=== PATIENT | female | born 1940 | race Caucasian/White ===

== ENCOUNTER 2016-06-23 13:22 | Emergency (ER) | payer MEDICARE, BC ==
[2016-06-23 14:26] LABS: BASO % 1.7 % (0-6); EOS % 3.4 % (0-6); GRAN % 53.8 % (47-80); HEMATOCRIT 37.4 % (35.0-47.0); HEMOGLOBIN 12.1 gm/dl (11.6-16.0); LYMPH % 31.4 % (16-45); MEAN CELL VOLUME 98.7 fl (81-97); MEAN CORPUSCULAR HEMOGLOBIN 31.9 pg (27-33); MEAN CORPUSCULAR HGB CONC 32.4 g/dl (32-36); MEAN PLATELET VOLUME 10.8 fl (7.4-10.4); MONO % 9.7 % (0-9); PLATELET COUNT 206 K/uL (130-400); RED BLOOD COUNT 3.79 M/uL (3.80-5.40); RED CELL DISTRIBUTION WIDTH 14.7 % (11.5-14.5); WHITE BLOOD COUNT W/O DIFF 4.1 K/uL (4.2-12.2)
[2016-06-23 14:51] LABS: ALB/GLOB RATIO 0.9 (1.1-1.8); ALBUMIN 3.6 gm/dL (3.5-5.0); ALKALINE PHOSPHATASE 199 U/L (38-126); ALT/SGPT 32 U/L (9-52); ANION GAP 15.7 (7-16); AST/SGOT 61 U/L (14-36); BILIRUBIN,TOTAL 3.91 mg/dL (0.2-1.3); BLOOD UREA NITROGEN 10 mg/dL (7-17); CARBON DIOXIDE 25.3 mmol/L (22-30); CREATININE 0.8 mg/dL (0.52-1.04); EST GLOMERULAR FILTRATION RATE > 60 ml/min; GLUCOSE,RANDOM 89 mg/dL (70-110); TOTAL PROTEIN 7.5 gm/dL (6.3-8.2)
[2016-06-23 15:01] LABS: TROPONIN I 0.014 ng/mL (0.00-0.034)
--- NOTE | 2016-06-23 16:09 | Emergency Department Record ---
History of Present Illness - General Chief Complaint: Shortness of breath Stated Complaint: CP/SHORTNESS OF BREATH Time Seen by Provider: 06/23/16 13:43 Source: Patient Mode of Arrival: Wheelchair Limitations: No limitations - History of Present Illness Initial Comments: pt was sent over from dr galo because she was in afib. by the time she got here she no longer was in it. MD Complaint: Cough, Shortness of breath Onset/Timin -: Week(s) Severity: Severe Consistency: Constant Improves With: Nothing Worsens With: Nothing Associated Symptoms: Cough, Nausea/vomiting Treatments Prior to Arrival: Diuretics - Related Data Home Oxygen Therapy: No Home Medications Medication Instructions Recorded Confirmed Last Taken Furosemide [Lasix] 80 mg PO DAILY 11/16/13 06/23/16 06/22/16 Budesonide/Formoterol Fumarate 10.2 gm IH BID 06/23/16 06/23/16 06/23/16 [Symbicort 160-4.5 Mcg Inhaler] Losartan Potassium [Cozaar] 25 mg PO DAILY 06/23/16 06/23/16 06/22/16 Previous Rx's Medication Instructions Recorded Potassium Chloride [Klor-Con] 10 meq PO DAILY #30 tablet.sa 06/30/15 Allergies Allergy/AdvReac Type Severity Reaction Status Date / Time No Known Drug Allergies Allergy Verified 06/23/16 13:32 Travel Screening - Travel/Exposure Within Last 30 Days Have you traveled within the last 30 days?: No Review of Systems Reviewed: No additional complaints except as noted below Constitutional: Reports: As per HPI. Denies: Chills, Fever, Malaise, Night sweats, Weakness, Weight change Eyes: Reports: As per HPI. Denies: Eye discharge, Eye pain, Photophobia, Vision change ENT: Reports: As per HPI. Denies: Congestion, Dental pain, Ear pain, Epistaxis , Hearing loss, Throat pain Respiratory: Reports: As per HPI. Denies: Cough, Dyspnea, Hemoptysis, Stridor, Wheezes Cardiovascular: Reports: As per HPI. Denies: Arrhythmia, Chest pain, Dyspnea on exertion, Edema, Murmurs, Orthopnea, Palpitations, Paroxysmal nocturnal dyspnea, Rheumatic Fever, Syncope Endocrine: Reports: As per HPI. Denies: Fatigue, Heat or cold intolerance, Polydipsia, Polyuria Gastrointestinal: Reports: As per HPI. Denies: Abdominal pain, Constipation, Diarrhea, Hematemesis, Hematochezia, Melena, Nausea, Vomiting Genitourinary: Reports: As per HPI. Denies: Abnormal menses, Discharge, Dyspareunia, Dysuria, Frequency, Hematuria, Incontinence, Retention, Urgency Musculoskeletal: Reports: As per HPI. Denies: Arthralgia, Back pain, Gout, Joint swelling, Myalgia, Neck pain Skin: Reports: As per HPI. Denies: Bruising, Change in color, Change in hair/ nails, Lesions, Pruritus, Rash Neurological: Reports: As per HPI. Denies: Abnormal gait, Confusion, Headache, Numbness, Paresthesias, Seizure, Tingling, Tremors, Vertigo, Weakness Psychiatric: Reports: As per HPI. Denies: Anxiety, Auditory hallucinations, Depression, Homicidal thoughts, Suicidal thoughts, Visual hallucinations Hematological/Lymphatic: Reports: As per HPI. Denies: Anemia, Blood Clots, Easy bleeding, Easy bruising, Swollen glands Past Medical History - SOCIAL HISTORY Smoking Status: Never smoker Alcohol Use: None Drug Use: None - RESPIRATORY Hx Respiratory Disorders: Yes Hx Pneumonia: Yes - CARDIOVASCULAR Hx Cardio Disorders: Yes Hx Irregular Heartbeat: Yes (afib) Hx Pacemaker/Defib: Yes (bradycardia) - NEURO Hx Neuro Disorders: No - GI Hx GI Disorders: No Hx Liver Disease: Yes (cirrhosis- unrelated to etoh) Comment:: hx esophageal varicies, numerous scopes with banding - Hx Genitourinary Disorders: No - ENDOCRINE Hx Endocrine Disorders: No Hx Diabetes: No Hx Thyroid Disease: No - MUSCULOSKELETAL Hx Musculoskeletal Disorders: Yes - PSYCH Hx Psych Problems: No - HEMATOLOGY/ONCOLOGY Hx Hematology/Oncology Disorders: Yes Hx Cancer: Yes (cervical) Family Medical History Any Significant Family History?: Yes Hx Cancer: Brother/Sister, Grandparents Hx Heart Disease: Grandparents Physical Exam - General General Appearance: Alert, Oriented x3, Cooperative, Mild distress - Head Head exam: Normal inspection - Eye Eye exam: Normal appearance, PERRL, EOMI Pupils: Normal accommodation - ENT ENT exam: Normal exam, Mucous membranes moist, Normal external ear exam, Normal orophraynx, TM's normal bilaterally Ear exam: Normal external inspection. negative: External canal tenderness Nasal Exam: Normal inspection. negative: Discharge, Sinus tenderness Mouth exam: Normal external inspection, Tongue normal Teeth exam: Normal inspection. negative: Dental caries Throat exam: Normal inspection. negative: Tonsillar erythema, Tonsillar exudate - Neck Neck exam: Normal inspection, Full ROM. negative: Tenderness - Respiratory Respiratory exam: Normal lung sounds bilaterally. negative: Respiratory distress - Cardiovascular Cardiovascular Exam: Regular rate, Normal rhythm, Normal heart sounds - GI/Abdominal GI/Abdominal exam: Soft, Normal bowel sounds, Other (ascites). negative: Tenderness - Rectal Rectal exam: Deferred - exam: Deferred - Extremities Extremities exam: Full ROM, Normal capillary refill, Pedal edema. negative: Tenderness - Back Back exam: Reports: Normal inspection, Full ROM. Denies: Muscle spasm, Rash noted, Tenderness - Neurological Neurological exam: Alert, Normal gait, Oriented X3, Reflexes normal - Psychiatric Psychiatric exam: Normal affect, Normal mood - Skin Skin exam: Dry, Intact, Normal color, Warm Course Vital Signs 06/23/16 06/23/16 06/23/16 13:24 14:23 15:04 Temperature 97.8 F Pulse Rate 93 H Pulse Rate [ 109 H 84 Home Health Caregiver ] Respiratory 24 20 24 Rate Blood Pressure 145/69 Blood Pressure 115/69 140/55 [Left Arm] Pulse Ox 98 97 97 06/23/16 16:02 Temperature 97.9 F Pulse Rate Pulse Rate [ 88 Home Health Caregiver ] Respiratory 24 Rate Blood Pressure Blood Pressure 119/64 [Left Arm] Pulse Ox 97 - Reevaluation(s) Reevaluation #1: 06/23/16 16:10 pt feels fine. no further afib Reevaluation #2: 06/23/16 16:[address] hyde Medical Decision Making - Lab Data Result diagrams: 06/23/16 13:30 06/23/16 13:30 Lab Results 06/23/16 06/23/16 Range/Units 13:30 13:30 WBC 4.1 L (4.2-12.2) K/uL RBC 3.79 L (3.80-5.40) M/uL Hgb 12.1 (11.6-16.0) gm/dl Hct 37.4 (35.0-47.0) % MCV 98.7 H (81-97) fl MCH 31.9 (27-33) pg MCHC 32.4 (32-36) g/dl RDW 14.7 H (11.5-14.5) % Plt Count 206 (130-400) K/uL MPV 10.8 H (7.4-10.4) fl Gran % 53.8 (47-80) % Lymphocytes % 31.4 (16-45) % Monocytes % 9.7 H (0-9) % Eosinophils % 3.4 (0-6) % Basophils % 1.7 (0-6) % Sodium 141 (136-145) mmol/L Potassium 3.7 (3.5-5.1) mmol/L Chloride 100 (98-107) mmol/L Carbon Dioxide 25.3 (22-30) mmol/L Anion Gap 15.7 (7-16) BUN 10 (7-17) mg/dL Creatinine 0.8 (0.52-1.04) mg/dL Estimated GFR > 60 ml/min Random Glucose 89 (70-110) mg/dL Calcium 8.9 (8.5-10.1) mg/dL Total Bilirubin 3.91 H (0.2-1.3) mg/dL AST 61 H (14-36) U/L ALT 32 (9-52) U/L Alkaline Phosphatase 199 H (38-126) U/L Troponin I 0.014 (0.00-0.034) ng/mL NT-Pro-B Natriuret Pep 408.00 (<450) pg/mL Total Protein 7.5 (6.3-8.2) gm/dL Albumin 3.6 (3.5-5.0) gm/dL Globulin 3.9 (1.4-4.8) gm/dL Albumin/Globulin Ratio 0.9 L (1.1-1.8) Disposition Disposition: Discharge Clinical Impression: Shortness of Breath Hepatic cirrhosis Qualifiers: Hepatic cirrhosis type: other cirrhosis Qualified Code(s): K74.69 - Other cirrhosis of liver Disposition: Home, Self-Care Condition: (1) Good Instructions: Dyspnea (ED) Additional Instructions: follow up with dr worthington tomorrow Forms: Patient Portal Access
== END 2016-06-23 16:38 | disposition home or self-care (01) ==
LOC: ER 13:22
DX: R06.02 Shortness of breath (principal); K74.69 Other cirrhosis of liver; R11.2 Nausea with vomiting, unspecified; R05 Cough; I48.91 Unspecified atrial fibrillation
CPT/HCPCS: 80053; 83880; 84484; 85025; 93005; 93010; 99284

== ENCOUNTER 2017-06-18 04:09 | Emergency (ER) | payer MEDICARE, BC ==
[2017-06-18] MEDS ORDERED: MORPHINE SULFATE 5 MG/ML PFS IVP ONE ×2 (04:18→06:57)
--- NOTE | 2017-06-18 04:22 | Emergency Department Record ---
History of Present Illness - General Chief Complaint: Fall Injury Stated Complaint: FALL, R ARM PAIN Time Seen by Provider: 06/18/17 04:14 Source: Patient, Family Mode of Arrival: Wheelchair Limitations: No limitations - History of Present Illness Initial Comments: 77 yo presents with weakness and right shoulder pain. The patient has cirrhosis with chronic liver disease due to Alpha-1 Antitrypsin Deficiency. She has weekly paracentesis for ascites. She is very week generally due to her chronic illness. She is on home oxygen as well. At 11pm she was walking down the hallway and felt weak. She fell landing on her right shoulder and elbow. Her significant other had family help get her up and into bed. At three AM she was still unable to sleep due to pain. No head injury. No LOC. No other injuries from the fall. Her PCP is Dr Alvarez. Complaint: Fall -: Hour(s) (5) Fall From: Standing When Fall Occurred: 4-6 hours [employer] Fall Witnessed: Yes, by family Place Fall Occurred: Home Loss of Consciousness: None Prolonged Down Time?: No Symptoms Prior to Fall: Other (Weakness) Location - Extremities: Right: Shoulder, Elbow Severity: Moderate Quality: Aching Context: Recent illness Associated Symptoms: Denies - [place] Coma Scale Eye Response: (4) Open spontaneously Motor Response: (6) Obeys commands Verbal Response: (5) Oriented [place] Total: 15 - Related Data Previous Rx's Medication Instructions Recorded Potassium Chloride [Klor-Con] 10 meq PO DAILY #30 tablet.sa 06/30/15 Allergies Allergy/AdvReac Type Severity Reaction Status Date / Time No Known Drug Allergies Allergy Verified 06/23/16 13:32 Review of Systems Constitutional: Reports: Malaise, Weakness. Denies: Chills, Fever Eyes: Denies: Eye discharge, Eye pain, Photophobia, Vision change ENT: Denies: Congestion, Dental pain, Throat pain Respiratory: Denies: Cough, Dyspnea, Hemoptysis, Stridor, Wheezes Cardiovascular: Denies: Chest pain, Palpitations, Syncope Endocrine: Reports: Fatigue. Denies: Polydipsia, Polyuria Gastrointestinal: Denies: Abdominal pain, Diarrhea, Nausea, Vomiting Genitourinary: Denies: Dysuria, Hematuria, Urgency Musculoskeletal: Reports: As per HPI, Arthralgia, Myalgia. Denies: Back pain, Joint swelling, Neck pain Skin: Reports: Bruising. Denies: Change in color Neurological: Reports: Weakness (generalized). Denies: Confusion, Headache, Numbness Psychiatric: Denies: Anxiety Hematological/Lymphatic: Denies: Blood Clots, Easy bleeding, Easy bruising, Swollen glands Past Medical History - SOCIAL HISTORY Smoking Status: Never smoker Drug Use: None - RESPIRATORY Hx Respiratory Disorders: Yes Hx Pneumonia: Yes - CARDIOVASCULAR Hx Cardio Disorders: Yes Hx Irregular Heartbeat: Yes (afib) Hx Pacemaker/Defib: Yes (bradycardia) - NEURO Hx Neuro Disorders: No - GI Hx GI Disorders: No Hx Liver Disease: Yes (cirrhosis- unrelated to etoh) Comment:: hx esophageal varicies, numerous scopes with banding - Hx Genitourinary Disorders: No - ENDOCRINE Hx Endocrine Disorders: No Hx Diabetes: No Hx Thyroid Disease: No - MUSCULOSKELETAL Hx Musculoskeletal Disorders: Yes - PSYCH Hx Psych Problems: No - HEMATOLOGY/ONCOLOGY Hx Hematology/Oncology Disorders: Yes Hx Cancer: Yes (cervical) Family Medical History Hx Cancer: Brother/Sister, Grandparents Hx Heart Disease: Grandparents Physical Exam - General General Appearance: Alert, Oriented x3, Cooperative, No acute distress, Other ( Appears chronically ill and frail) Limitations: No limitations - Head Head exam: Atraumatic, Normocephalic, Normal inspection Head exam detail: negative: Abrasion, Contusion, Hematoma, Laceration - Eye Eye exam: Normal appearance, PERRL. negative: Conjunctival injection, Periorbital swelling, Scleral icterus - ENT ENT exam: Normal exam, Mucous membranes moist, Normal orophraynx Ear exam: Normal external inspection Nasal Exam: Normal inspection Mouth exam: Normal external inspection Teeth exam: Normal inspection Throat exam: Normal inspection - Neck Neck exam: Normal inspection, Full ROM. negative: Tenderness - Respiratory Respiratory exam: Normal lung sounds bilaterally. negative: Accessory muscle use, Chest wall tenderness, Decreased breath sounds, Prolonged expiratory, Respiratory distress, Rhonchi, Stridor, Wheezes - Cardiovascular Cardiovascular Exam: Normal rhythm, Tachycardia Peripheral Pulses: 2+: Radial (R), Radial (L) - GI/Abdominal GI/Abdominal exam: Soft, Distended (softly, but non tender). negative: Guarding , Rebound, Tenderness - Rectal Rectal exam: Deferred - exam: Deferred - Extremities Extremities exam: Joint swelling, Normal capillary refill, Tenderness. negative : Calf tenderness, Full ROM Image of Full Body: 1 - tender anterior shoulder, pain with ROM, mild swelling and bruising - Back Back exam: Denies: CVA tenderness (R), CVA tenderness (L), Muscle spasm, Rash noted, Tenderness - Neurological Neurological exam: Alert, Oriented X3. negative: Motor sensory deficit - Psychiatric Psychiatric exam: Normal affect, Normal mood - Skin Skin exam: Dry, Intact, Normal color, Warm Course - Reevaluation(s) Reevaluation #1: The CBC was reviewed She has chronic anemia. Hgb is 10.0 The BMP was reviewed. She is hyponatremic at 127, K is 5.2, HCO3 is 12, BUN is 55, CR is 2.6 with AG 21 INR is 1.13 06/18/17 05:02 The XR was reviewed She has a proximal humerus fracture with mild displacement. No dislocation. 06/18/17 05:08 06/18/17 05:36 EKG Paced rhtyhm, rate 100, left axis, New pacer since prior EKG 06/23/2016 Given her weakness, hyponatremia, renal insufficiency, humerus fracture to weak and painful to care for self I recommended admission. There will not be orthopedics at [facility] for 2 weeks. The patient chooses [facility] for transfer as she gets most of her care through [facility]. I SW Dr Luo of [facility] She will accept the case for transfer, admission, ortho consult 06/18/17 05:40 ammonia level is 51 06/18/17 06:25 A bed was assigned at [facility]. Medical Decision Making - Lab Data Result diagrams: 06/18/17 04:28 06/18/17 04:28 Disposition Disposition: Transfer Clinical Impression: Hyponatremia, Renal insufficiency, Weakness generalized Humerus fracture Qualifiers: Encounter type: initial encounter Humerus Location: proximal Fracture type: closed Fracture alignment: displaced Laterality: right Disposition: Acute Care Hospital Transfer Transfer To: [facility] Reason For Transfer: Humerus Fx, CRF, Ortho Accepting Physician: Valerio Time Discussed w/Accepting Physician: 05:36 Condition: (2) Stable Forms: Patient Portal Access Time of Disposition: 05:36 Quality - Quality Measures Quality Measures: N/A - Blood Pressure Screening Does Patient Have Any of the Following: No Blood Pressure Classification: Pre-Hypertensive BP Reading Systolic Measurement: 104 Diastolic Measurement: 84 Screening for High Blood Pressure: < Pre-Hypertensive BP, F/U Documented > [ [id number]] Pre-Hypertensive Follow-up Interventions: Referral to alternative/primary care provider.
[2017-06-18 04:41] LABS: HEMATOCRIT 30.3 % (35.0-47.0); MEAN CELL VOLUME 96.8 fl (81-97); MEAN CORPUSCULAR HEMOGLOBIN 31.9 pg (27-33); MEAN PLATELET VOLUME 10.8 fl (7.4-10.4); PLATELET COUNT 182 K/uL (130-400); RED BLOOD COUNT 3.13 M/uL (3.80-5.40); RED CELL DISTRIBUTION WIDTH 13.8 % (11.5-14.5); WHITE BLOOD COUNT W/O DIFF 9.6 K/uL (4.2-12.2)
[2017-06-18 04:46] LABS: INR 1.13; PARTIAL THROMBOPLASTIN TIME 35.7 SECONDS (24.5-39.1); PROTHROMBIN TIME (PATIENT) 12.2 SECONDS (9.5-12.1)
[2017-06-18 04:48] LABS: BILIRUBIN,TOTAL 2.2 mg/dL (0.2-1.0); CREATININE 2.6 mg/dL (0.5-0.9)
[2017-06-18 04:49] LABS: TOTAL PROTEIN 6.7 g/dL (6.6-8.7)
[2017-06-18 04:54] LABS: ALBUMIN 3.8 g/dL (4.0-5.0); BILIRUBIN,DIRECT 0.6 mg/dL (0-0.3)
[2017-06-18] MEDS ORDERED: 0.9 % SODIUM CHLORIDE 1000ML 1,000 ML IV PRN (05:18)
[2017-06-18] MEDS ORDERED: ONDANSETRON HCL IV 4 MG/2 ML VIAL IVP ONE (05:23)
--- NOTE | 2017-06-18 12:58 | RADIOLOGY REPORT ---
DATE: 06/18/2017. EXAM: RIGHT SHOULDER, FOUR VIEWS. COMPARISON: None. HISTORY: Fall. Pain. TECHNIQUE: Four views of the right shoulder were obtained. FINDINGS: Mildly comminuted, impacted humeral head/neck fracture. Fracture may involve the greater tuberosity. There is approximately one cortex with lateral displacement. Bones are osteopenic. IMPRESSION: COMMINUTED, IMPACTED HUMERAL HEAD/NECK FRACTURE. JOB NUMBER: [id number] MTDD
--- NOTE | 2017-06-18 13:01 | RADIOLOGY REPORT ---
DATE: 06/18/2017. EXAM: RIGHT ELBOW, THREE VIEWS. HISTORY: Fall. Pain. TECHNIQUE: Three views of the right elbow were obtained. FINDINGS: The bones are osteopenic. No elbow joint effusion. No clearly acute osseous abnormality. Olecranon enthesophyte at the triceps attachment. Mild soft tissue swelling. IMPRESSION: NO ACUTE OSSEOUS ABNORMALITY OF THE RIGHT ELBOW. JOB NUMBER: [id number] MTDD
== END 2017-06-18 07:48 | disposition short-term general hospital (02) ==
LOC: ER 04:09
DX: S42.354A Nondisplaced comminuted fracture of shaft of humerus, right arm, initial encounter for closed fracture (principal); E87.1 Hypo-osmolality and hyponatremia; R53.1 Weakness; K74.69 Other cirrhosis of liver; E88.01 Alpha-1-antitrypsin deficiency; I48.91 Unspecified atrial fibrillation; D53.9 Nutritional anemia, unspecified; W18.30XA Fall on same level, unspecified, initial encounter; Y92.009 Unspecified place in unspecified non-institutional (private) residence as the place of occurrence of the external cause
CPT/HCPCS: 80048; 80076; 82140; 85027; 85610; 85730; 93005; 93010; 96374; 96375; 96376; 99285; J2405

== ENCOUNTER 2017-06-20 12:30 | Inpatient (IN) | payer BC, MEDICARE ==
[2017-06-21] MEDS ORDERED: ALBUTEROL HFA 8 GM INHALER INH PRN (16:26)
--- NOTE | 2017-06-21 16:32 | Rehab Evaluation ---
Patient Information - Patient Information Diagnosis: right humerus fracture, ascitis d/t cirrhosis, emphysema Ordered Treatment: OT Evaluate and Treat Status: Initial Evaluation Surgery: No Past Med/Gaetano Hx Detail: Detail (Pt, spouse and family members report she has been ill for about a year and has been getting weaker.) Past Medical/Surgical Hx: PAST MEDICAL/SURGICAL HISTORY Past Surgical History hysterectomy appendectomy tonsillectomy PMH - Respiratory Hx Respiratory Disorders Yes Hx Chronic Obstructive Yes Pulmonary Disease (COPD) Hx Pneumonia Yes Comment: Home O2- 2L mostly throughout the night PMH - Cardiovascular Hx Cardiovascular Disorders Yes Hx Irregular Heartbeat Yes: afib Hx Pacemaker/Defibrillator Yes: bradycardia PMH - Neuro Hx Neurological Disorders No PMH - GI Hx Gastrointestinal Disorders Yes Hx Liver Disease Yes: cirrhosis- unrelated to etoh Hx Nausea/Vomiting Yes Comment: hx esophageal varicies, numerous scopes with banding PMH - Hx Genitourinary Disorders Yes Hx Renal Disease Yes PMH - Endocrine Hx Endocrine Disorders No Hx Diabetes No Hx Thyroid Disease No PMH - Musculoskeletal Hx Musculoskeletal Disorders No Comment: fx ribs 2 yrs ago PMH - Psych Hx Psychiatric Problems No PMH - Hematology/Oncology Hx Hematology/Oncology Yes Disorders Hx Cancer Yes: cervical Hx Chemotherapy No Hx Radiation Therapy No Premorbid Status: Detail (Pt lives with spouse in a 1 story house, she stays on the 1st floor. She has 2 steps, no handrails at entrance although there is a surface to grab onto by the steps. She has a tub/shower combination, 1 grab bar and no seat. She usually stands to shower. Spouse and sister complete home mgmt, meal prep and laundry. She has been Ind with showering and dressing although her spouse is nearby in case she needs help. Prior to fall she was ambulating without an assistive device.) Precautions: [place], Fall, Other (Right UE in sling at all times, non weight bearing right UE) Subjective Information - Subjective Information Per Patient, Other (Spouse, sister and friend) Objective Data - Pain Pain Present: Yes (3/10 right shoulder, upper arm and elbow.) - Mental Status Patient Orientation: Oriented x3 - Visual Perception Appears within normal limits for therapeutic activities - ROM Not within normal limits (Right UE not tested due to fracture, Left UE AROM WNL) - Strength/Tone Not within normal limits (Right UE not tested due to fracture, Left UE 4+/5) - Coordination Deficit (Right hand coordination impaired due to immobilization, left UE WNL) - Transfers Independent (Ind with sit to stand from chair) - Balance Balance Sitting: Good Balance Standing: Good - Sensation Intact - Gait Detail (Pt ambulating in room with yuri walker and CG assist/verbal cues for safety) - ADL's/IADL's Detail (Pt able to complete oral hygiene, washing face and combing hair at sink in standing with SBA, using right hand as an assist. Doffed sling with verbal cues, doffed gown with min assist, donned button down shirt with mod assist to door puller right shoulder/upper arm and around back, she was Ind with buttons. Doffed PJ bottoms and slippers Indly with mod difficulty, donned underpants Indly, donned pants with min assist, donned socks with mod assist to start over toes. Donned slip on shoes Indly. Donned sling with mod-max assist.) Therapy Assessment - Therapy Assessment Detail (Pt presents with decreased Ind with self care activities due to immobilization of right UE, decreased endurance/activity tolerance for self cares and functional mobility.) Problem List - Problem List Occupational Therapy Problem List: Detail (1. Decreased Ind with total body dressing. 2. Decreased Ind with showering. 3. Decreased endurance/activity tolerance needed for safe and Ind ADLs.) Goals - Goals Occupational Therapy Goals: 1. Pt will be safe and Ind with total body dressing including sling. 2. Pt will be safe and Ind with showering. 3. Pt will participate in activities to improve overall endurance and tolerance to activity to allow safe and Ind ADLs. Prognosis - Prognosis Good Plan - Plan Occupational Therapy Plan: OT 2-4 days per week to address self cares, functional mobility, endurance and activity tolerance to allow return home with spouse.
[2017-06-21] MEDS: CEPHALEXIN 500 MG CAPSULE PO SCH ×2 (17:38→22:07)
[2017-06-21] MEDS: MIDODRINE 5 MG PO SCH ×4 (17:38→23:14)
--- NOTE | 2017-06-21 20:43 | History & Physical ---
History of Present Illness - Date Date of Service for History & Physical: 06/22/17 - History of Present Illness Admitting Diagnosis: right humerus fracture. Ascitis d/t cirrhosis. Emphysema History of Present Illness: Patient is a 77 yo female admitted to [facility] for generalized weakness. 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 Patient transferred to [facility] from our ER after mechanical fall and right humeral fracture. Incidentally, patient was found to have hyponatremia and acute on chronic renal failure. Patient's sodium is chronically low due to cirrhosis. She has weekly paracentesis (most recently 06/16). Her right humeral fracture is non surgical. Patient reports mid esophageal liquid/solid dysphagia. pertinent negatives: cp, sob, sally, fever, chills, n/v, abd pain, diarrhea, dizziness, lightheadedness. positive: right upper ext pain, bruising, fatigue, weakness. Patient lives in a one story home with her . She does have two stairs into her house w/o a railing. There's a tub/shower combo in her bathroom. Prior to her arrival, patient ambulated without an assisted device. GI: [facility], EGD scheduled in June. Nephrology: Dr. Alvarado Ortho: Dr. Thomas- needs fup in 2 weeks from 06/21 PCP: Dr. Alvarez General - Cognitive Patterns Orientation: Oriented x3, Person, Place, Time, Responds to Name, Recognizes Familiar Faces or Places, Knows Own Daily Schedule - Communication Preferred Language?: Mongolian Level of Education: High School Comprehension Ability: No Impairment Select best description of speech pattern: Clear Speech Ability to express ideas and wants: Understood Understanding verbal content: Understands - Psychosocial Well-Being Usual Living Arrangement: Spouse, Children - Physical Functioning Activity Level: Up with assist x1 ROM Ability: Limited/Compromised Assistive Devices: None Ambulation Ability: Needs Assist Bed Mobility: Needs Assist Transfer Ability: Needs Assist Bathing Ability: Needs Assist Personal Hygiene: Needs Assist Dressing Ability: Needs Assist Eating (Feeding) Ability: Needs Assist Toileting Ability: Needs Assist Administer Own Medication: Needs Assist Care Ability Comment: needs help with cutting food prior to eating. - Continence Bladder Pattern: Normal - Dental Status Unable to examine: No Broken or loosely fitting full or partial dentures: No No natural teeth or tooth fragment(s) (edentulous): No Abnormal mouth tissue (ulcers, masses, oral lesions, etc.): No Obvious or likely cavity or broken natural teeth: No Inflamed or bleeding gums or loose natural teeth: No Mouth/facial pain, discomfort or difficulty chewing: No - Nutrition Screening Poor oral intake > 1 week: Yes Unplanned weight loss in specified time frame: No Nutrition Support via tube feedings or parenteral nutrition: No Pressure Ulcer: No Significantly underweight define as BMI <18.5 kg/m2: No Albumin <2.5mg/dL: No Persistent nausea/vomiting/diarrhea >3 days: Yes Difficulty chewing/swallowing/mouth sores: No Admitting Diagnosis: No Nutrition Risk Score: High Risk Past Medical History - SOCIAL HISTORY Smoking Status: Never smoker Alcohol Use: None - SURGICAL HISTORY Past Surgical History: hysterectomy. appendectomy. tonsillectomy - RESPIRATORY Hx Respiratory Disorders: Yes Hx Pneumonia: Yes - CARDIOVASCULAR Hx Cardio Disorders: Yes Hx Irregular Heartbeat: Yes (afib) Hx Pacemaker/Defib: Yes (bradycardia) - NEURO Hx Neuro Disorders: No - GI Hx GI Disorders: Yes Hx Liver Disease: Yes (cirrhosis- unrelated to etoh) Hx Nausea/Vomiting: Yes Comment:: hx esophageal varicies, numerous scopes with banding - Hx Genitourinary Disorders: Yes Hx Renal Disease: Yes - ENDOCRINE Hx Endocrine Disorders: No Hx Diabetes: No Hx Thyroid Disease: No - MUSCULOSKELETAL Hx Musculoskeletal Disorders: No - PSYCH Hx Psych Problems: No - HEMATOLOGY/ONCOLOGY Hx Hematology/Oncology Disorders: Yes Hx Cancer: Yes (cervical) Family Medical History Any Significant Family History?: Yes Hx Cancer: Brother/Sister, Grandparents Hx Heart Disease: Mother, Grandparents Hx HTN: Mother Hx Resp Disorders: Mother H&P Meds/Allergies - Allergies Allergies: Allergies Allergy/AdvReac Type Severity Reaction Status Date / Time codeine AdvReac NAUSEA Verified 06/21/17 15:25 - Active Medications Active Medications: Current Medications Albuterol Sulfate (Ventolin Hfa) 2 puff INH Q6H PRN PRN Reason: SHORTNESS OF BREATH Cephalexin HCl (Keflex) 500 mg PO TID [facility] Stop: 06/27/17 22:01 Last Admin: 06/21/17 17:38 Dose: 500 mg Docusate Sodium (Colace) 100 mg PO BID [facility] Ondansetron HCl (Zofran Odt) 4 mg SL TID PRN PRN Reason: NAUSEA Patient Own Med: (Midodrine 5 Mg) 1 each PO TID [facility] Last Admin: 06/21/17 17:55 Dose: 1 each Prednisone (Prednisone 10mg) 10 mg PO DAILYWM [facility] Stop: 06/26/17 08:01 Physical Exam - Vital Signs Vital Signs: Vital Signs - Last 24 Hrs Temp Pulse Resp BP Pulse Ox 06/21/17 20:00 97.8 F 78 16 99/51 99 06/21/17 15:25 97.8 F 77 18 122/78 99 - General General Appearance: Alert, Oriented x3, Cooperative, No acute distress - Head Head exam: Atraumatic, Normocephalic - Eye Eye exam: Normal appearance, PERRL - ENT ENT exam: Normal exam, Normal orophraynx Ear exam: Normal external inspection Nasal Exam: Normal inspection Mouth exam: Normal external inspection - Neck Neck exam: Normal inspection - Respiratory Respiratory exam: Prolonged expiratory, Wheezes. negative: Respiratory distress - Cardiovascular Cardiovascular Exam: Regular rate, Other (pacemaker present) - GI/Abdominal GI/Abdominal exam: Soft - Rectal Rectal exam: Deferred - exam: Deferred H&P Results - Labs Result Diagrams: 06/22/17 06:27 06/22/17 06:27 Discharge Potential - Discharge Needs Patient Discharge Plan Description: Return Home Plan - Swing Bed Certification Initial Certification Due: 06/21/17 14 Day Re-Cert Due: 07/05/17 44 Day Re-Cert Due: 08/04/17 74 Day Re-Cert Due: 09/03/17 - Detailed Diagnosis and Plan (1) Weakness generalized Current Visit: No Status: Acute Base Code: R53.1 - WEAKNESS Comment: 06/22 - worsening over the past year, more specifically the last few months. PT/OT to help build physical strength and functioning. (2) Cirrhosis Current Visit: Yes Status: Acute Base Code: K74.60 - UNSPECIFIED CIRRHOSIS OF LIVER Comment: 06/22- cirrhosis 2/2 alpha 1 antitrypsin deficiency. Patient following with [facility]. She has an appt with their office today at 4pm. Will continue weekly paracentesis w/ albumin replacement. (3) Humerus fracture Current Visit: No Status: Acute Qualifiers: Encounter type: initial encounter Humerus Location: proximal Fracture type: closed Fracture alignment: displaced Laterality: right Base Code: S42.309A - UNSP FRACTURE OF SHAFT OF HUMERUS, UNSP ARM, INIT Comment: 06/22- continue right arm sling and adequate pain control. she will follow up with ortho by July 05. (4) Hyponatremia Current Visit: No Status: Acute Base Code: E87.1 - HYPO-OSMOLALITY AND HYPONATREMIA Comment: 06/22- chronically low due to cirrhosis. improved since d/c from [facility]. will follow. (5) Renal insufficiency Current Visit: No Status: Acute Base Code: N28.9 - DISORDER OF KIDNEY AND URETER, UNSPECIFIED Comment: 06/22- per nephrology note, they suspect this is related to hypoperfusion/hypotension w/ liver failure + frequent required paracentesis and chronic hepatorenal syndrome. Will follow. - continue midodrine TID for hypotension. (6) Full code status Current Visit: Yes Status: Acute Base Code: Z78.9 - OTHER SPECIFIED HEALTH STATUS Comment: 06/22- FULL CODE (7) Dysphagia Current Visit: Yes Status: Acute Base Code: R13.10 - DYSPHAGIA, UNSPECIFIED Comment: 06/22- chronic to both liquids and solids. speech eval/treat order. patient has egd scheduled.
[2017-06-21] MEDS: DOCUSATE SODIUM 100 MG CAPSULE PO SCH (22:07)
[2017-06-22] MEDS: BREO (FLUTICASONE/VILANTEROL) 200MCG/25MCG INHALER INH SCH ×2 (05:46→09:59)
[2017-06-22 06:52] LABS: EOS % 1.6 % (0-6); GRAN % 71.4 % (47-80); HEMATOCRIT 25.7 % (35.0-47.0); HEMOGLOBIN 8.5 gm/dl (11.6-16.0); LYMPH % 16.5 % (16-45); MEAN CELL VOLUME 95.2 fl (81-97); MEAN CORPUSCULAR HGB CONC 33.1 g/dl (32-36); MEAN PLATELET VOLUME 10.2 fl (7.4-10.4); MONO % 10.5 % (0-9); PLATELET COUNT 223 K/uL (130-400); RED CELL DISTRIBUTION WIDTH 13.5 % (11.5-14.5); WHITE BLOOD COUNT W/O DIFF 7.3 K/uL (4.2-12.2)
[2017-06-22 07:01] LABS: MEAN CORPUSCULAR HEMOGLOBIN 31.4 pg (27-33)
[2017-06-22 07:13] LABS: ALB/GLOB RATIO 1.1 (1.1-1.8); ALBUMIN 3.2 g/dL (4.0-5.0); BILIRUBIN,TOTAL 1.3 mg/dL (0.2-1.0); CREATININE 3.2 mg/dL (0.5-0.9)
[2017-06-22] MEDS: PREDNISONE 10 MG TAB PO SCH (08:45)
[2017-06-22] MEDS: DOCUSATE SODIUM 100 MG CAPSULE PO SCH ×2 (09:53→22:18)
[2017-06-22] MEDS: CEPHALEXIN 500 MG CAPSULE PO SCH ×3 (09:53→22:18)
[2017-06-22] MEDS: MIDODRINE 5 MG PO SCH ×3 (09:54→22:18)
--- NOTE | 2017-06-22 13:29 | Rehab Evaluation ---
Patient Information - Patient Information Diagnosis: right humerus fracture, ascitis d/t cirrhosis, emphysema Ordered Treatment: PT Evaluate and Treat Status: Initial Evaluation Surgery: No History: Detail (Pt had a fall at home at night while walking to the bathroom from bed. She doesn't know what happened but thinks she may have slipped. She states that her , son and daughter in law all helped her get back into bed, where she proceeded to experience increasing pain in the right upper extremity. She subsequently came to the ED, diagnosed with R humerus fracture, and was transferred to [facility], where she receives paracentesis weekly. She is admitted to sub-acute rehab due to generalized weakness.) Past Med/Gaetano Hx Detail: Detail (Pt, spouse and family members report she has been ill for about a year and has been getting weaker. She states she had a fall from the bathroom vanity about two years ago and fractured ribs, after which she has been declining. Cirrhosis was diagnosed during care following that fall.) Past Medical/Surgical Hx: PAST MEDICAL/SURGICAL HISTORY Past Surgical History hysterectomy appendectomy tonsillectomy PMH - Respiratory Hx Respiratory Disorders Yes Hx Chronic Obstructive Yes Pulmonary Disease (COPD) Hx Pneumonia Yes Comment: Home O2- 2L mostly throughout the night PMH - Cardiovascular Hx Cardiovascular Disorders Yes Hx Irregular Heartbeat Yes: afib Hx Pacemaker/Defibrillator Yes: bradycardia PMH - Neuro Hx Neurological Disorders No PMH - GI Hx Gastrointestinal Disorders Yes Hx Liver Disease Yes: cirrhosis- unrelated to etoh Hx Nausea/Vomiting Yes Comment: hx esophageal varicies, numerous scopes with banding PMH - Hx Genitourinary Disorders Yes Hx Renal Disease Yes PMH - Endocrine Hx Endocrine Disorders No Hx Diabetes No Hx Thyroid Disease No PMH - Musculoskeletal Hx Musculoskeletal Disorders No Comment: fx ribs 2 yrs ago PMH - Psych Hx Psychiatric Problems No PMH - Hematology/Oncology Hx Hematology/Oncology Yes Disorders Hx Cancer Yes: cervical Hx Chemotherapy No Hx Radiation Therapy No Premorbid Status: Detail (Pt lives with spouse in a 1 story house, she stays on the 1st floor. She has 2 steps, no handrails at entrance although there is a surface to grab onto by the steps. She has a tub/shower combination, 1 grab bar and no seat. She usually stands to shower. Spouse and sister complete home mgmt, meal prep and laundry. She has been Ind with showering and dressing although her spouse is nearby in case she needs help. Prior to fall she was ambulating without an assistive device, but she admits to holding onto furniture or gutierrez to steady herself. She uses O2 at 2 lpm at night via nasal cannula, and sometimes as needed during the day (feeling short of breath).) Social History: Detail (Pt states she does very little during the day but watch TV and read. She tries to help with cooking but fatigues easily. Spouse and pt 's son do most of household ADLs.) Precautions: Elizabeth, Fall, Other (Right UE in sling at all times NWB) - Time With Patient Total Time Spent With Patient (Min): 50 Treatment Procedures: Detail (PT evaluation) Subjective Information - Subjective Information Per Patient (Denies pain; says she didn't sleep well last night but surprisingly feels good right now.) Objective Data - Pain Pain Present: No Pain Intensity: 0 Pain Scale Used: Numeric (1 - 10) - Mental Status Patient Orientation: Oriented x3 - Visual Perception Appears within normal limits for therapeutic activities - ROM Within normal limits (In L UE and B LE's. Flexibility impairments in B gastrocnemius muscles.) - Strength/Tone Not within normal limits (3-/5 in B hip flexion and extension, 4/5 B hip abduction and adduction, B knee flexion and extension. 3-/5 L ankle dorsiflexion, 4/5 R. See OT note for UE strength.) - Coordination Appears within normal limits for therapeutic activities - Bed Mobility Needs Assist (CGA/min assist for supine to sit at edge of bed and to get LE's back in bed and for positioning.) - Transfers Needs Assist (Sit/stand to yuri-walker w/SBA/CGA.) - Balance Balance Sitting: Good Balance Standing: Fair - Sensation Intact - Gait Detail (Ambulated from bedside to bedroom door and back to bedside w/yuri walker on L, w/CGA (about 22 feet).) Therapy Assessment - Therapy Assessment Detail (Pt exhibits mobility, gait/balance, and strength impairments consistent w/her condition. She is a good candidate for inpatient rehabilitation.) Patient Education - Patient Education Teaching Topic: Equipment Use, Exercise/Activity, Precautions Response: Return Demonstration, Reinforcement Needed, Verbalize Understanding Teaching Method: Discussion, Demonstration Teaching Recipient: Patient Barriers To Learning: None Problem List - Problem List Physical Therapy Problem List: Detail (1. Requires assist for bed mobility. 2. Generalized weakness. 3. Difficulty walking. 4. History of falls.) Goals - Goals Physical Therapy Goals: 1. Complete formal balance assessment to establish baseline. 2. Pt will be independent w/bed mobility and transfers. 3. Pt will exhibit 4+/5 strength in major muscle groups of B LE's for greater stability w/ transfers and gait. 4. Pt will safely and independently ambulate w/least restrictive assistive device over household distances. Prognosis - Prognosis Good Plan - Plan Physical Therapy Plan: Pt will be seen 1-2 times a day M-F for lower extremity strengthening exercises, gait/balance training, bed mobility training, and transfer training to facilitate return to home environment.
--- NOTE | 2017-06-22 20:33 | Swallow Evaluation ---
Swallow Evaluation - General Patient Information Date of Assessment: 06/22/17 Referral Date: 06/22/17 Date of Onset: Approximately 1 year ago. Admitting Diagnosis: See intake information. Swing bed patient. Recently broke her arm in a fall. Medical History: See intake information. Current Feeding Status: All oral Cognitive Status: Grossly intact. Oral Motor Assessment - Lips Lips at Rest: Normal Function Lip Retraction: Normal Function Lip Protrusion: Normal Function - Tongue Tongue at Rest: Normal Function Tongue Protrusion: Normal Function Tongue Elevation: Normal Function Tongue Lateralization: Normal Function - Velum Velum at Rest: Normal Function Velum Elevation: Normal Function - Additional Information Oral Sensitivity: WFL Volitional Cough/Throat Clearing: WFL - productive. Hx of COPD per patient report. Swallow Assessment - Additional Information Swallow Assessment Comment: Patient refused the intake portion of the swallowing assessment. Detailed Oral Motor Assessment was completed as well as questions regarding symptoms as they present for this patient. Patient has a hx of deficits with esophogeal phase of the swallow including reflux and a hx of esophogeal dialations. Patient reported she is no longer a candidate for dialation but is still experiencing frequent reflux. Reflux and general safe swallowing precautions reviewed and provided in writing to the patient including : remain upright during and after meals up to an hour at 90 degrees. Avoid certian foods which are acidic in nature, citrus, coffee, tomato, etc. Patient appeared agreeable to these recommendations. No other ST tx is warranted at this time due to lack of carmine-pharyngeal deficit and presence of a hx of esophogeal dysfunction. Plan for Treatment - Diagnosis/Clinical Impression Diagnosis: Suspected esophogeal phase dysphagia. Clinical Impression: Patient presents with complaints of food coming back up after eating or drinking, eating and drinking is effortful and she often feels like she has to avoid eating because of this difficulty. Patient does not report any coughing while eating but does feel as though she chokes but does not report any hx of requiring for measures which would eject food or liquid from the airway. Patient is followed by a twister operator which would be a continued recommendation if these symptoms continue. Patient consumes soft foods at a slow rate and small bolus size to reduce her overall risk for aspiration and work to improve intake. - Consistency Modification Consistency Modification: Soft Liquid Modification: Regular - Behavior Modification Behavior Modification: Small Sips, Position upright for all oral intake - Additional Plan Details Plan for Treatment: No treatment at this time. Continue to utilize GI consultation to address concerns. Videofluroscopic Swallow Study Ordered: No Diagnosis/Recommendation Discussed With: Patient, Family, Nurse Goals for Treatment - Additional Goal Detail Additional Goal Detail: No goals established due to location of dysfunction.
[2017-06-23 06:41] LABS: CREATININE 3.2 mg/dL (0.5-0.9)
[2017-06-23 06:42] LABS: ALB/GLOB RATIO 1.1 (1.1-1.8); ALBUMIN 3.1 g/dL (4.0-5.0); BILIRUBIN,TOTAL 1.4 mg/dL (0.2-1.0); TOTAL PROTEIN 5.9 g/dL (6.6-8.7)
[2017-06-23] MEDS: PREDNISONE 10 MG TAB PO SCH (07:54)
--- NOTE | 2017-06-23 09:19 | Physical Therapy Tx Note ---
Physical Therapy Tx Note - Treatment Note Tolerated: Good Total Time Spent With Patient: 15 Physical Therapy Tx Note: Detail (The patient was sitting in her chair upon arrival. The patient transferred from sit to stand with supervision. She ambulated from her chair to the restroom (about 13 feet) with a small base quad cane and required supervision. While walking, she had difficulty keeping all four points in contact with the floor, and advancing the cane too far forward her feet. While in the restroom, she required supervision for balance while brushing her teeth and brushing her hair. She walked back to her chair with the yuri-walker, and showed better control with gait and better stability, as well. She needed some verbal cuing to make sure the yuri-walker cleared her feet, so she would not trip. The patient was advised to continue to use the yuri-walker inside the room. The patient was returned to her chair and was left with OT to continue dressing.) Physical Therapy Problem List: Detail (1. Requires assist for bed mobility. 2. Generalized weakness. 3. Difficulty walking. 4. History of falls.) Physical Therapy Goals: 1. Complete formal balance assessment to establish baseline. 2. Pt will be independent w/bed mobility and transfers. 3. Pt will exhibit 4+/5 strength in major muscle groups of B LE's for greater stability w/ transfers and gait. 4. Pt will safely and independently ambulate w/least restrictive assistive device over household distances. Prognosis: Good Physical Therapy Plan: Pt will be seen 1-2 times a day M-F for lower extremity strengthening exercises, gait/balance training, bed mobility training, and transfer training to facilitate return to home environment.
[2017-06-23] MEDS: BREO (FLUTICASONE/VILANTEROL) 200MCG/25MCG INHALER INH SCH (09:58)
[2017-06-23] MEDS: MIDODRINE 5 MG PO SCH ×3 (10:20→22:00)
[2017-06-23] MEDS: DOCUSATE SODIUM 100 MG CAPSULE PO SCH ×2 (10:20→21:59)
[2017-06-23] MEDS: CEPHALEXIN 500 MG CAPSULE PO SCH ×3 (10:20→21:59)
[2017-06-23] MEDS: TEMAZEPAM 15 MG CAPSULE PO PRN (22:00)
[2017-06-24 07:49] LABS: ALB/GLOB RATIO 1.4 (1.1-1.8); ALBUMIN 3.4 g/dL (4.0-5.0); BILIRUBIN,TOTAL 1.5 mg/dL (0.2-1.0); CREATININE 2.7 mg/dL (0.5-0.9); TOTAL PROTEIN 5.8 g/dL (6.6-8.7)
[2017-06-24] MEDS: PREDNISONE 10 MG TAB PO SCH (08:14)
[2017-06-24] MEDS: BREO (FLUTICASONE/VILANTEROL) 200MCG/25MCG INHALER INH SCH (09:23)
[2017-06-24] MEDS: CEPHALEXIN 500 MG CAPSULE PO SCH ×3 (10:11→22:04)
[2017-06-24] MEDS: DOCUSATE SODIUM 100 MG CAPSULE PO SCH ×2 (10:11→22:05)
[2017-06-24] MEDS: MIDODRINE 5 MG PO SCH ×3 (10:12→22:05)
[2017-06-24] MEDS: HYDROCODONE/APAP 5/325MG TABLET PO PRN (13:58)
[2017-06-24] MEDS: TEMAZEPAM 15 MG CAPSULE PO PRN (22:07)
[2017-06-25] MEDS: PREDNISONE 10 MG TAB PO SCH (08:02)
[2017-06-25 08:03] LABS: ALB/GLOB RATIO 1.4 (1.1-1.8); ALBUMIN 3.3 g/dL (4.0-5.0); BILIRUBIN,TOTAL 1.4 mg/dL (0.2-1.0); CREATININE 2.4 mg/dL (0.5-0.9); TOTAL PROTEIN 5.7 g/dL (6.6-8.7)
[2017-06-25] MEDS: BREO (FLUTICASONE/VILANTEROL) 200MCG/25MCG INHALER INH SCH (09:36)
[2017-06-25] MEDS: MIDODRINE 5 MG PO SCH ×3 (09:49→22:10)
[2017-06-25] MEDS: CEPHALEXIN 500 MG CAPSULE PO SCH ×3 (09:49→22:12)
[2017-06-25] MEDS: DOCUSATE SODIUM 100 MG CAPSULE PO SCH ×2 (09:49→22:12)
[2017-06-25] MEDS ORDERED: MAGNESIUM HYDROXIDE 30 ML UDC PO PRN (09:50)
[2017-06-25] MEDS: ONDANSETRON 4 MG ODT TABLET SL PRN (13:00)
[2017-06-26] MEDS: MIRTAZAPINE 15 MG TABLET PO PRN ×2 (00:56→22:54)
[2017-06-26 07:14] LABS: ALB/GLOB RATIO 1.3 (1.1-1.8); ALBUMIN 3.5 g/dL (4.0-5.0); BILIRUBIN,TOTAL 1.6 mg/dL (0.2-1.0); CREATININE 2.3 mg/dL (0.5-0.9); TOTAL PROTEIN 6.1 g/dL (6.6-8.7)
[2017-06-26] MEDS: HYDROCODONE/APAP 5/325MG TABLET PO PRN (09:34)
[2017-06-26] MEDS: CEPHALEXIN 500 MG CAPSULE PO SCH ×3 (09:35→22:54)
[2017-06-26] MEDS: DOCUSATE SODIUM 100 MG CAPSULE PO SCH ×2 (09:35→22:54)
[2017-06-26] MEDS: PREDNISONE 10 MG TAB PO SCH (09:38)
[2017-06-26] MEDS: MIDODRINE 5 MG PO SCH ×3 (09:40→22:53)
[2017-06-26] MEDS: BREO (FLUTICASONE/VILANTEROL) 200MCG/25MCG INHALER INH SCH (09:55)
--- NOTE | 2017-06-26 10:30 | Occupational Therapy Tx Note ---
Occupational Therapy Tx Note - Treatment Note Tolerated: Fair Total Time Spent With Patient: 45 (ADL) Occupational Therapy Treatment Note: Detail (S: Pt up in chair, c/o shoulder pain this morning. O: Sit to stand and amb to toilet with yuri walker and CG assist. Toileted Indly. Amb to chair at sink with yuri walker. Pt doffed sling Indly, doffed gown with assist to untie, doffed PJ bottoms, underpants and slippers Indly with mod difficulty, doffed bra with max assist. Pt completed washing face, chest, right arm, remigio area and buttocks Indly although fatigued easily. Pt donned button shirt with max assist for right UE and to button, max assist to start underpants and pants over feet, mod assist to pulling unit floorhand right hip, max assist for slippers. Pt able to complete oral hygiene Indly , partially combed hair Indly. Donned sling with max assist. Pt amb back to chair with yuri walker and CG assist. A: Pt required mod to max assist for self care activity today, reports increased right UE pain and demonstrated overall increase in fatigue. Pt unable to utilize modified dressing techniques due to pain.) Occupational Therapy Problem List: Detail (1. Decreased Ind with total body dressing. 2. Decreased Ind with showering. 3. Decreased endurance/activity tolerance needed for safe and Ind ADLs.) Occupational Therapy Goals: 1. Pt will be safe and Ind with total body dressing including sling. 2. Pt will be safe and Ind with showering. 3. Pt will participate in activities to improve overall endurance and tolerance to activity to allow safe and Ind ADLs. Prognosis: Good Occupational Therapy Plan: OT 2-4 days per week to address self cares, functional mobility, endurance and activity tolerance to allow return home with spouse.
[2017-06-26] MEDS ORDERED: SPS 15 GM/60 ML PO ONE (13:27)
--- NOTE | 2017-06-26 13:37 | Physician Progress Note ---
Subjective - Date Date of Physician Progress Note: 06/26/17 - Subjective Subjective Comment: patient's potassium jumped from 4.8 to 5.8. She denies any confusion, worsening weakness, cp, heart palpitations or muscle twitching. Objective - Vital Signs Vital Signs: Vital Signs - Last 24 Hrs Temp Pulse Resp BP BP Pulse Ox 06/26/17 10:22 97.5 F L 98/56 06/26/17 08:00 97.5 F L 78 98/56 95 06/25/17 20:00 97.9 F 86 18 99/52 99 06/25/17 16:51 87 16 96/55 97 - General General Appearance: Alert, Oriented x3, Cooperative, No acute distress - Head Head exam: Atraumatic, Normocephalic - Eye Eye exam: Normal appearance, PERRL - ENT ENT exam: Normal exam, Normal orophraynx Ear exam: Normal external inspection Nasal Exam: Normal inspection Mouth exam: Normal external inspection - Neck Neck exam: Normal inspection - Respiratory Respiratory exam: Prolonged expiratory, Wheezes. negative: Respiratory distress - Cardiovascular Cardiovascular Exam: Regular rate, Other (pacemaker present) - GI/Abdominal GI/Abdominal exam: Soft, Normal bowel sounds, Distended (related to ascites). negative: Hyperactive bowel sounds, Tenderness - Rectal Rectal exam: Deferred - exam: Deferred - Extremities Extremities exam: negative: Calf tenderness - Neurological Neurological exam: Alert, Oriented X3 - Skin Skin exam: negative: Diaphoretic Assessment and Plan - Assessment and Plan (1) Hyperkalemia Current Visit: Yes Status: Acute Base Code: E87.5 - HYPERKALEMIA Comment: 06/26 - potassium 4.8->5.8 - kayexalate 30 g - recheck BMP later today - denies heart palpitations, worsening weakness, confusion or muscle twitching (2) Weakness generalized Current Visit: No Status: Acute Base Code: R53.1 - WEAKNESS Comment: 06/26 - worsening over the past year, more specifically the last few months. Continue PT/OT to help build physical strength and functioning. (3) Cirrhosis Current Visit: Yes Status: Acute Base Code: K74.60 - UNSPECIFIED CIRRHOSIS OF LIVER Comment: 06/26- cirrhosis 2/2 alpha 1 antitrypsin deficiency. Patient following with [facility]. Continue weekly paracentesis w/ albumin replacement. (4) Humerus fracture Current Visit: No Status: Acute Qualifiers: Encounter type: initial encounter Humerus Location: proximal Fracture type: closed Fracture alignment: displaced Laterality: right Base Code: S42.309A - UNSP FRACTURE OF SHAFT OF HUMERUS, UNSP ARM, INIT Comment: 06/26- continue right arm sling and adequate pain control. she will follow up with ortho by July 05. (5) Hyponatremia Current Visit: No Status: Acute Base Code: E87.1 - HYPO-OSMOLALITY AND HYPONATREMIA Comment: 06/26- chronically low due to cirrhosis. improved since d/c from [facility]. will follow. (6) Renal insufficiency Current Visit: No Status: Acute Base Code: N28.9 - DISORDER OF KIDNEY AND URETER, UNSPECIFIED Comment: 06/26- per nephrology note, they suspect this is related to hypoperfusion/hypotension w/ liver failure + frequent required paracentesis and chronic hepatorenal syndrome. Will follow. - continue midodrine TID for hypotension. (7) Full code status Current Visit: Yes Status: Acute Base Code: Z78.9 - OTHER SPECIFIED HEALTH STATUS Comment: 06/26- FULL CODE (8) Dysphagia Current Visit: Yes Status: Acute Base Code: R13.10 - DYSPHAGIA, UNSPECIFIED Comment: 06/26- chronic to both liquids and solids. speech eval/treat completed. patient has egd scheduled. Results - Labs Result Diagrams: 06/22/17 06:27 06/26/17 06:46 Labs Last 24 Hours: Laboratory Results - last 24 hr 06/26/17 06:46 Sodium 132 L Potassium 5.8 H Chloride 98 Carbon Dioxide 21.0 L Anion Gap 13.0 BUN 70 H Creatinine 2.3 H Estimated GFR 22 Random Glucose 90 Calcium 9.3 Total Bilirubin 1.60 H AST 44 H ALT 25 Alkaline Phosphatase 204 H Total Protein 6.1 L Albumin 3.5 L Globulin 2.6 Albumin/Globulin Ratio 1.3 DVT/PE Assessment - Risk for VTE Risk for VTE: No Risk Level: High Risk Assessment Date: 06/26/17 Risk Assessment Time: 11:00 VTE Orders Placed or Will Be Placed: No VTE Reason for No Prophylaxis: Contraindicated - Active Medicaitons Current Medications: Current Medications Hydrocodone Bitart/Acetaminophen ([place] 5mg/325mg) 1 each PO Q8H PRN PRN Reason: Pain - General Last Admin: 06/26/17 09:34 Dose: 1 each Albuterol Sulfate (Ventolin Hfa) 2 puff INH Q6H PRN PRN Reason: SHORTNESS OF BREATH Cephalexin HCl (Keflex) 500 mg PO TID [facility] Stop: 06/27/17 22:01 Last Admin: 06/26/17 09:35 Dose: 500 mg Docusate Sodium (Colace) 100 mg PO BID [facility] Last Admin: 06/26/17 09:35 Dose: 100 mg Magnesium Hydroxide (Milk Of Magnesium) 30 ml PO DAILY PRN PRN Reason: INDIGESTION Last Admin: 06/25/17 09:59 Dose: 30 ml Mirtazapine (Remeron) 15 mg PO QHS PRN PRN Reason: SLEEP Last Admin: 06/26/17 00:56 Dose: 15 mg Ondansetron HCl (Zofran Odt) 4 mg SL TID PRN PRN Reason: NAUSEA Last Admin: 06/25/17 13:00 Dose: 4 mg Patient Own Med: (Midodrine 5 Mg) 2 each PO TID [facility] Last Admin: 06/26/17 09:40 Dose: 2 each Sodium Polystyrene Sulfonate (Kayexelate) 30 gm PO ONCE ONE Stop: 06/26/17 13:28 AMI Plan - Labs Result Diagrams: 06/22/17 06:27 06/26/17 06:46
--- NOTE | 2017-06-26 13:38 | Physical Therapy Tx Note ---
Physical Therapy Tx Note - Treatment Note Tolerated: Good Total Time Spent With Patient: 25 Physical Therapy Tx Note: Detail (The patient was supine upon arrival. The patient was able to transfer from supine to sit with modified independence (use of bed rail to pull her body up). She was able to move from sit to stand with supervision, and immediate standing balance showed no postural sway. The patient ambulated from her room to the next room, about 13 ft. x 2 with a yuri- walker. She showed equal step length, but stopped occasionally to move her feet out from under the legs of the walker. The patient returned to her chair and completed 5 reps of LAQ's and glut. sets, and 10 reps of heel/toe raises, hip add/abduction. She tolerated exercises and walking well, but required breaks after each exercise. The Tinetti balance assessment was completed and the patient scored 17/28, which places her in the high fall risk category. The patient returned to her bed with her call light in reach.) Physical Therapy Problem List: Detail (1. Requires assist for bed mobility. 2. Generalized weakness. 3. Difficulty walking. 4. History of falls.) Physical Therapy Goals: 1. Complete formal balance assessment to establish baseline. 2. Pt will be independent w/bed mobility and transfers. 3. Pt will exhibit 4+/5 strength in major muscle groups of B LE's for greater stability w/ transfers and gait. 4. Pt will safely and independently ambulate w/least restrictive assistive device over household distances. Prognosis: Moderate Physical Therapy Plan: Pt will be seen 1-2 times a day M-F for lower extremity strengthening exercises, gait/balance training, bed mobility training, and transfer training to facilitate return to home environment.
[2017-06-26 19:04] LABS: CREATININE 2.5 mg/dL (0.5-0.9)
[2017-06-27 07:39] LABS: ALB/GLOB RATIO 1.2 (1.1-1.8); ALBUMIN 3.1 g/dL (4.0-5.0); BILIRUBIN,TOTAL 1.7 mg/dL (0.2-1.0); CREATININE 2.4 mg/dL (0.5-0.9); TOTAL PROTEIN 5.6 g/dL (6.6-8.7)
[2017-06-27] MEDS: HYDROCODONE/APAP 5/325MG TABLET PO PRN (09:18)
[2017-06-27] MEDS: DOCUSATE SODIUM 100 MG CAPSULE PO SCH ×2 (09:18→22:34)
[2017-06-27] MEDS: CEPHALEXIN 500 MG CAPSULE PO SCH ×3 (09:18→22:35)
[2017-06-27] MEDS: MIDODRINE 5 MG PO SCH ×3 (09:19→22:35)
--- NOTE | 2017-06-27 09:42 | Occupational Therapy Tx Note ---
Occupational Therapy Tx Note - Treatment Note Tolerated: Fair Total Time Spent With Patient: 60 (ADL) Occupational Therapy Treatment Note: Detail (S: Pt resting in bed, less pain this morning. O: Supine to sit Indly with bed rail. Sit to stand and amb to toilet with yuri walker. Completed toileting Indly. Amb to shower chair with yuri walker and SBA. Doffed sling Indly. Doffed shirt with instruction on modified technique and min assist. Doffed pants, underpants and slippers Indly with mod difficulty. Completed showering in sitting and standing with assist to wash back and hair, CG for standing to wash remigio area and buttocks. Pt able to dry self with CG assist. Donned underpants and pants Indly with mod difficulty and CG for standing. Donned shirt with verbal instruction for modified technique and min assist for buttons due to fatigue. Donned sling with max assist. Sit to stand and amb to sink and completed oral hygiene and combed hair with SBA. Amb to chair with yuri walker and SBA. A: Pt very fatigued with ADLs, increased Ind with dressing and mobility today.) Occupational Therapy Problem List: Detail (1. Decreased Ind with total body dressing. 2. Decreased Ind with showering. 3. Decreased endurance/activity tolerance needed for safe and Ind ADLs.) Occupational Therapy Goals: 1. Pt will be safe and Ind with total body dressing including sling. 2. Pt will be safe and Ind with showering. 3. Pt will participate in activities to improve overall endurance and tolerance to activity to allow safe and Ind ADLs. Prognosis: Good Occupational Therapy Plan: OT 2-4 days per week to address self cares, functional mobility, endurance and activity tolerance to allow return home with spouse.
[2017-06-27] MEDS: BREO (FLUTICASONE/VILANTEROL) 200MCG/25MCG INHALER INH SCH (10:52)
--- NOTE | 2017-06-27 16:00 | Physical Therapy Tx Note ---
Physical Therapy Tx Note - Treatment Note Tolerated: Good Total Time Spent With Patient: 25 Physical Therapy Tx Note: Detail (The patient was laying in bed upon arrival. The patient required minimal assistance to transfer from supine to sit, as she is unable to push up from the bed with her right upper extremity. However, she was able to transfer from sit to stand independently. The patient was able to ambulate for 15 ft x2 with a yuri-walker, and required supervision/CGA. The patient was independent in returning to a chair, where she completed 12-15 reps of the following exercises: LAQs, Hip Flexion, Hip Add/Abduction, Heel/Toe Raises, and glut. sets. She was determined to increase her reps today, and did not show increased fatigue until the tail end of the session. The patient then moved from her chair to her bed (Independent sit to stand), and was able to transfer from sit to supine independently. She also scooted in bed without assistance. The patient was given her call light while in bed, and a caregiver was present at the end of the session.) Physical Therapy Problem List: Detail (1. Requires assist for bed mobility. 2. Generalized weakness. 3. Difficulty walking. 4. History of falls.) Physical Therapy Goals: 1. Complete formal balance assessment to establish baseline. 2. Pt will be independent w/bed mobility and transfers. 3. Pt will exhibit 4+/5 strength in major muscle groups of B LE's for greater stability w/ transfers and gait. 4. Pt will safely and independently ambulate w/least restrictive assistive device over household distances. Prognosis: Good Physical Therapy Plan: Pt will be seen 1-2 times a day M-F for lower extremity strengthening exercises, gait/balance training, bed mobility training, and transfer training to facilitate return to home environment.
[2017-06-27] MEDS: MIRTAZAPINE 15 MG TABLET PO PRN (22:34)
[2017-06-27] MEDS: ONDANSETRON 4 MG ODT TABLET SL PRN (23:37)
[2017-06-28 08:46] LABS: HEMATOCRIT 28.6 % (35.0-47.0); HEMOGLOBIN 9.2 gm/dl (11.6-16.0); MEAN CELL VOLUME 98.3 fl (81-97); MEAN CORPUSCULAR HEMOGLOBIN 31.6 pg (27-33); MEAN CORPUSCULAR HGB CONC 32.2 g/dl (32-36); MEAN PLATELET VOLUME 9.7 fl (7.4-10.4); PLATELET COUNT 196 K/uL (130-400); RED BLOOD COUNT 2.91 M/uL (3.80-5.40); WHITE BLOOD COUNT W/O DIFF 6.8 K/uL (4.2-12.2)
[2017-06-28 09:03] LABS: PLATELET ESTIMATE NORMAL (NORMAL)
[2017-06-28] MEDS: MIDODRINE 5 MG PO SCH ×3 (09:05→21:20)
[2017-06-28 09:14] LABS: BILIRUBIN,TOTAL 2.4 mg/dL (0.2-1.0); CREATININE 2.5 mg/dL (0.5-0.9)
[2017-06-28 09:20] LABS: ALB/GLOB RATIO 1.1 (1.1-1.8); ALBUMIN 3.1 g/dL (4.0-5.0)
[2017-06-28] MEDS: BREO (FLUTICASONE/VILANTEROL) 200MCG/25MCG INHALER INH SCH (10:04)
--- NOTE | 2017-06-28 11:42 | Physician Progress Note ---
Subjective - Date Date of Progress Note: 06/28/17 - Admitting Diagnosis Diagnosis: right humerus fracture. Ascitis d/t cirrhosis. Emphysema - Subjective Events since last encounter: Pt. fell in bathroom this morning around 7:45am. She was assisted to the bathroom by an MA, then she pulled the call light and she was found laying on the bathroom floor, on her right side. Pt. states that she missed the toilet seat when she went to sit down, and she hit her left forehead on the toilet seat. She told nursing staff that she was dizzy at the time of the fall itself , but denied it afterwards. She had a 1cm laceration on her left eyebrow- it was irrigated with 0.9% NaCl, dried with gauze, and dermabond was applied to the wound. The edges of the wound were well-approximated. Pt. was provided an ice pack to use on left forehead. Vital signs were repeated and were normal, except for elevated heart rate of 110 that decreased to 102 ten minutes later. A neuro check was completed and normal. She denies any headache, nausea, chest pain, and current dizziness. Musculoskeletal exam negative for concern of further fracture. Dr. Mendez also assessed pt. and, based on examination, decided no further imaging was necessary at this time. Will plan to closely monitor pt. and place "falling star" sign on door. Nursing Care Plan Problem List Activity Intolerance (Swing Bed) Start: 06/21/17 15: 56 Freq: Status: Active Protocol: Created 06/21/17 15:56 BJ (Rec: 06/21/17 15:56 BJ [id number]) High Risk: Impaired Skin Integrity Start: 06/21/17 23: 25 Freq: Status: Active Protocol: Created 06/21/17 23:25 LPR (Rec: 06/21/17 23:25 LPR [id number]) Knowledge Deficit (Swing Bed) Start: 06/21/17 15: 56 Freq: Status: Active Protocol: Created 06/21/17 15:56 BJJ (Rec: 06/21/17 15:56 BJ [id number]) Pain (Swing Bed) Start: 06/21/17 15: 56 Freq: Status: Active Protocol: Created 06/21/17 15:56 BJJ (Rec: 06/21/17 15:56 BJ [id number]) - Subjective Detail Comment: No additional complaints except as noted below Neurological: Reports: Other (dizziness with fall) General - Cognitive Patterns Speech: Normal Thought Process: Intact Thought Content: Normal - Communication Select best description of speech pattern: Clear Speech Ability to express ideas and wants: Understood Understanding verbal content: Understands - Mood and Behavior Patterns Appearance: Well Groomed Mood: Normal Attitude: Cooperative Motor Activity: Calm Affect: Appropriate Hallucinations: Denies - Physical Functioning Activity Level: Up with assist x1 Turning: With partial assist ROM Ability: Limited/Compromised Assistive Devices: Walker Ambulation Ability: Needs Assist Bed Mobility: Needs Assist Transfer Ability: Needs Assist Bathing Ability: Needs Assist Personal Hygiene: Needs Assist Dressing Ability: Needs Assist Eating (Feeding) Ability: Independent Toileting Ability: Needs Assist Administer Own Medication: Needs Assist Care Ability Comment: needs help with cutting food prior to eating. - Continence Bowel Pattern: Normal for Patient Bladder Pattern: Normal Meds/Allergies - Allergies Allergies Allergy/AdvReac Type Severity Reaction Status Date / Time codeine AdvReac NAUSEA Verified 06/21/17 15:25 - Active Medications Current Medications Hydrocodone Bitart/Acetaminophen ([place] 5mg/325mg) 1 each PO Q8H PRN PRN Reason: Pain - General Last Admin: 06/27/17 09:18 Dose: 1 each Albuterol Sulfate (Ventolin Hfa) 2 puff INH Q6H PRN PRN Reason: SHORTNESS OF BREATH Docusate Sodium (Colace) 100 mg PO BID [facility] Last Admin: 06/27/17 22:34 Dose: 100 mg Magnesium Hydroxide (Milk Of Magnesium) 30 ml PO DAILY PRN PRN Reason: INDIGESTION Last Admin: 06/25/17 09:59 Dose: 30 ml Mirtazapine (Remeron) 15 mg PO QHS PRN PRN Reason: SLEEP Last Admin: 06/27/17 22:34 Dose: 15 mg Ondansetron HCl (Zofran Odt) 4 mg SL TID PRN PRN Reason: NAUSEA Last Admin: 06/27/17 23:37 Dose: 4 mg Patient Own Med: (Midodrine 5 Mg) 2 each PO TID [facility] Last Admin: 06/28/17 09:05 Dose: 2 each Objective - Vital Signs Vital Signs: Vital Signs - Last 24 Hrs Temp Pulse Resp BP Pulse Ox 06/28/17 08:55 98.6 F 102 H 18 105/49 95 06/28/17 07:56 110 H 16 116/64 94 L 06/27/17 20:00 97.9 F 82 18 91/49 97 H&P Results - Labs Result Diagrams: 06/28/17 08:43 06/28/17 08:43 Labs Last 24 Hours: Laboratory Results - last 24 hr 06/28/17 06/28/17 08:43 08:43 WBC 6.8 RBC 2.91 L Hgb 9.2 L Hct 28.6 L MCV 98.3 H MCH 31.6 MCHC 32.2 RDW 15.0 H Plt Count 196 MPV 9.7 Neutrophils % 67.0 Band Neutrophils % 1.0 Eosinophils % Not Reportable Basophils % Not Reportable Lymphocytes 20.0 Monocytes 7.0 Platelet Estimate Normal RBC Morphology Normal Eosinophil Count 5.0 Sodium 132 L Potassium 4.3 Chloride 95 L Carbon Dioxide 21.0 L Anion Gap 16.0 BUN 62 H Creatinine 2.5 H Estimated GFR 20 Random Glucose 97 Calcium 9.1 Total Bilirubin 2.40 H AST 41 H ALT 23 Alkaline Phosphatase 181 H Total Protein 6.0 L Albumin 3.1 L Globulin 2.9 Albumin/Globulin Ratio 1.1 Discharge Potential - Discharge Needs Community Services Used Prior to Admission: None Patient Discharge Plan Description: Return Home Community Services Needed at Discharge: Home Health Aide, Home Health Nurse, Occupational Therapy, Physical Therapy Plan - Swing Bed Certification Initial Certification Due: 06/21/17 14 Day Re-Cert Due: 07/05/17 44 Day Re-Cert Due: 08/04/17 74 Day Re-Cert Due: 09/03/17
[2017-06-28] MEDS: HYDROCODONE/APAP 5/325MG TABLET PO PRN (15:52)
[2017-06-28] MEDS: DOCUSATE SODIUM 100 MG CAPSULE PO SCH ×2 (15:52→21:19)
[2017-06-28] MEDS: MIRTAZAPINE 15 MG TABLET PO PRN (21:19)
[2017-06-29] MEDS: HYDROCODONE/APAP 5/325MG TABLET PO PRN (09:09)
[2017-06-29] MEDS: DOCUSATE SODIUM 100 MG CAPSULE PO SCH ×2 (09:09→21:38)
[2017-06-29] MEDS: MIDODRINE 5 MG PO SCH ×3 (09:09→21:38)
[2017-06-29] MEDS: ONDANSETRON 4 MG ODT TABLET SL PRN (09:13)
[2017-06-29] MEDS: BREO (FLUTICASONE/VILANTEROL) 200MCG/25MCG INHALER INH SCH (09:59)
--- NOTE | 2017-06-29 11:27 | Physical Therapy Tx Note ---
Physical Therapy Tx Note - Treatment Note Tolerated: Good Total Time Spent With Patient: 35 Physical Therapy Tx Note: Detail (Pt in bed upon arrival, son Joe present but left before treatment started. Pt awake/alert/cooperative for therapy. Required min assist to come from reclined in bed to sitting at bedside. Sat unsupported w/o difficulty. Reported having had 9/10 pain in R shoulder earlier , got medication, now 6/10. Completed Glass Balance Test w/pt, with one sitting rest period needed due to fatigue. Pt scored 32/56, indicating need for walker due to risk for falling. Pt was shaky during test, denied dizziness or lightheadedness, and fatigued rapidly. Instructed in Codman's/pendulum exercises and demonstrated to pt how to do in sitting, explaining front/back, side/side, clockwise and counter-clockwise circles (small ranges) and assisted pt in performing these x 5 reps each to R UE. Pt performed 5 reps of active elbow flexion/extension, supination/pronation, close fist/open hand, finger/ thumb touching. Pt reported increased pain in R UE w/shoulder motions and had difficulty w/elbow flex/ext. Required mod assist to get back into bed, and max assistance to reposition. Call light, phone, and bedside table placed within reach of patient; nrsg notified.) Physical Therapy Problem List: Detail (1. Requires assist for bed mobility. 2. Generalized weakness. 3. Difficulty walking. 4. History of falls.) Physical Therapy Goals: 1. Complete formal balance assessment to establish baseline - met, 32/56 on 06/29/17. 2. Pt will be independent w/bed mobility and transfers. 3. Pt will exhibit 4+/5 strength in major muscle groups of B LE's for greater stability w/transfers and gait. 4. Pt will safely and independently ambulate w/least restrictive assistive device over household distances. Prognosis: Good Physical Therapy Plan: Pt will be seen 1-2 times a day M-F for lower extremity strengthening exercises, gait/balance training, bed mobility training, and transfer training to facilitate return to home environment.
[2017-06-29] MEDS ORDERED: HYDROCORTISONE 1% CREAM 28.35 GM TUBE TOP PRN (11:30)
--- NOTE | 2017-06-29 17:14 | Physical Therapy Tx Note ---
Physical Therapy Tx Note - Treatment Note Tolerated: Good Total Time Spent With Patient: 30 Physical Therapy Tx Note: Detail (Patient was reclined in bed upon OXYACETYLENE CUTTER arrival. Patient states feeling good this afternoon. Patient transferred supine to sit min assist x1. Patient transferred sit to and from stand SBA x1. Patient ambulated 44 feet with hemiwalker SBA x1. Patient displayed minor loss of balance with ambulation. Patient performed the following exercises seated in chair x10 reps each: LAQ, seated heel raises, seated toe raises, seated hip abduction with red theraband, isometric hip adduction, and hamstring curls with red theraband. Patient transferred sit to and from stand SBA x1. Patient ambulated 17 feet with hemiwalker SBA x1. Patient transferred sit to and from stand SBA x1. Patient ambualted 11 feet with hemiwalker SBA x1. Patient transferred sit to supine min assist x2. Patient scooted over in bed independently. Patient scooted up in bed max assist x2. Patient tolerated treatment well. Patient displays decreased strength and endurance with LAQ, hamstring curls, seated hip abduction, and ambulation. Patient reports fatigued after treatment. Patient was left reclined in bed with call light within reach.) Physical Therapy Problem List: Detail (1. Requires assist for bed mobility. 2. Generalized weakness. 3. Difficulty walking. 4. History of falls.) Physical Therapy Goals: 1. Complete formal balance assessment to establish baseline - met, 32/56 on 06/29/17. 2. Pt will be independent w/bed mobility and transfers. 3. Pt will exhibit 4+/5 strength in major muscle groups of B LE's for greater stability w/transfers and gait. 4. Pt will safely and independently ambulate w/least restrictive assistive device over household distances. Prognosis: Good Physical Therapy Plan: Pt will be seen 1-2 times a day M-F for lower extremity strengthening exercises, gait/balance training, bed mobility training, and transfer training to facilitate return to home environment.
[2017-06-29] MEDS: MIRTAZAPINE 15 MG TABLET PO PRN (21:38)
[2017-06-30] MEDS: MIDODRINE 5 MG PO SCH ×3 (09:31→23:15)
[2017-06-30] MEDS: DOCUSATE SODIUM 100 MG CAPSULE PO SCH ×2 (09:31→23:15)
--- NOTE | 2017-06-30 10:00 | Physical Therapy Tx Note ---
Physical Therapy Tx Note - Treatment Note Total Time Spent With Patient: 30 Physical Therapy Tx Note: Detail (The patient was laying in bed upon arrival. The patient was able to transfer from supine to sit at the edge of the bed with contact guard assist only. She was able to transfer from sit to stand independently, and was able to walk with a yuri-walker from her room to the next room and back (about 40 feet in total). She was able to ambulate with supervision only, and slight verbal cues to maintain contact with the floor with all four points of the yuri-walker. She was able to return to her chair independently and completed 12-15 reps of the following LE exercises: LAQ, glut. sets, heel/toe raises, and hip adduction. She was able to complete 5-8 reps of the following UE exercises: wrist flexion/extension, wrist circles, and elbow flexion/extension. She was able to complete the UE exercises with limited pain, and did not complain of any increase in pain after all exercises were finished. The patient returned to bed after exercises, but required max assist of 2 to scoot her up in bed after laying down. The patient tolerated exercise well, and would benefit from further bed mobility exercises.) Physical Therapy Problem List: Detail (1. Requires assist for bed mobility. 2. Generalized weakness. 3. Difficulty walking. 4. History of falls.) Physical Therapy Goals: 1. Complete formal balance assessment to establish baseline - met, 32/56 on 06/29/17. 2. Pt will be independent w/bed mobility and transfers. 3. Pt will exhibit 4+/5 strength in major muscle groups of B LE's for greater stability w/transfers and gait. 4. Pt will safely and independently ambulate w/least restrictive assistive device over household distances. Prognosis: Moderate Physical Therapy Plan: Pt will be seen 1-2 times a day M-F for lower extremity strengthening exercises, gait/balance training, bed mobility training, and transfer training to facilitate return to home environment.
[2017-06-30] MEDS: BREO (FLUTICASONE/VILANTEROL) 200MCG/25MCG INHALER INH SCH (10:18)
[2017-06-30] MEDS: HYDROCODONE/APAP 5/325MG TABLET PO PRN (16:08)
[2017-06-30] MEDS: MIRTAZAPINE 15 MG TABLET PO PRN (23:15)
[2017-07-01] MEDS: DOCUSATE SODIUM 100 MG CAPSULE PO SCH ×2 (09:17→22:21)
[2017-07-01] MEDS: MIDODRINE 5 MG PO SCH ×3 (09:19→22:21)
[2017-07-01] MEDS: BREO (FLUTICASONE/VILANTEROL) 200MCG/25MCG INHALER INH SCH (10:10)
[2017-07-01] MEDS: MIRTAZAPINE 15 MG TABLET PO PRN (22:22)
[2017-07-02] MEDS: ONDANSETRON 4 MG ODT TABLET SL PRN ×3 (00:06→14:29)
[2017-07-02 06:35] LABS: HEMATOCRIT 26.9 % (35.0-47.0); HEMOGLOBIN 8.6 gm/dl (11.6-16.0); MEAN CELL VOLUME 98.5 fl (81-97); MEAN CORPUSCULAR HEMOGLOBIN 31.5 pg (27-33); MEAN PLATELET VOLUME 10.5 fl (7.4-10.4); PLATELET COUNT 194 K/uL (130-400); RED BLOOD COUNT 2.73 M/uL (3.80-5.40); RED CELL DISTRIBUTION WIDTH 14.8 % (11.5-14.5); WHITE BLOOD COUNT W/O DIFF 8.2 K/uL (4.2-12.2)
[2017-07-02 06:55] LABS: ALB/GLOB RATIO 1.1 (1.1-1.8); ALBUMIN 3.2 g/dL (4.0-5.0); BILIRUBIN,TOTAL 2.1 mg/dL (0.2-1.0); TOTAL PROTEIN 6.1 g/dL (6.6-8.7)
[2017-07-02] MEDS: DOCUSATE SODIUM 100 MG CAPSULE PO SCH ×2 (09:56→22:26)
[2017-07-02] MEDS: MIDODRINE 5 MG PO SCH ×3 (09:56→22:26)
[2017-07-02] MEDS ORDERED: SPS 15 GM/60 ML PO ONE (09:57)
[2017-07-02] MEDS: BREO (FLUTICASONE/VILANTEROL) 200MCG/25MCG INHALER INH SCH (10:16)
[2017-07-02 20:37] LABS: CREATININE 2.9 mg/dL (0.5-0.9)
[2017-07-02] MEDS: MIRTAZAPINE 15 MG TABLET PO PRN (22:26)
[2017-07-03] MEDS: HYDROCODONE/APAP 5/325MG TABLET PO PRN (08:05)
--- NOTE | 2017-07-03 08:34 | Occupational Therapy Tx Note ---
Occupational Therapy Tx Note - Treatment Note Tolerated: Fair Total Time Spent With Patient: 50 (ADL) Occupational Therapy Treatment Note: Detail (S: Pt awake and ready to get up. O: Supine to sit Indly with HOB elevated slightly. Sit to stand and amb to toilet with yuri walker and CG assist. Completed toileting with assist for hygiene. Pt amb to sink with yuri walker and completed oral hygiene with verbal cues, pt slightly confused and required cues for toothpaste. Pt amb to chair with yuri walker and CG assist. Doffed slippers, PJ bottoms and underwear with SBA for standing. Donned underpants with mod verbal cues and PJ bottoms with min assist due to confusion with orientation of pants and difficulty reaching feet. Pt stood and pulled pants over hips with SBA. Donned socks with mod assist due to fatigue and increased right UE pain with activity. Doffed PJ top with verbal cues for modified technique, donned shirt with verbal cues for modified technique and mod assist to lathe puller right elbow and for buttons. Donned sling with max assist. A: Pt continues to struggle with dressing activity due to pain and overall decreased endurance. She presented with mild confusion today.) Occupational Therapy Problem List: Detail (1. Decreased Ind with total body dressing. 2. Decreased Ind with showering. 3. Decreased endurance/activity tolerance needed for safe and Ind ADLs.) Occupational Therapy Goals: 1. Pt will be safe and Ind with total body dressing including sling. 2. Pt will be safe and Ind with showering. 3. Pt will participate in activities to improve overall endurance and tolerance to activity to allow safe and Ind ADLs. Occupational Therapy Plan: OT 2-4 days per week to address self cares, functional mobility, endurance and activity tolerance to allow return home with spouse.
[2017-07-03] MEDS: DOCUSATE SODIUM 100 MG CAPSULE PO SCH ×2 (09:37→22:26)
[2017-07-03] MEDS: MIDODRINE 5 MG PO SCH ×3 (09:37→22:26)
[2017-07-03] MEDS: BREO (FLUTICASONE/VILANTEROL) 200MCG/25MCG INHALER INH SCH (10:15)
--- NOTE | 2017-07-03 11:23 | Physician Progress Note ---
Subjective - Date Date of Progress Note: 07/03/17 - Admitting Diagnosis Diagnosis: right humerus fracture. Ascitis d/t cirrhosis. Emphysema - Subjective Nursing Care Plan Problem List Activity Intolerance (Swing Bed) Start: 06/21/17 15: 56 Freq: Status: Active Protocol: Created 06/21/17 15:56 [facility] (Rec: 06/21/17 15:56 [facility] [id number]) High Risk: Impaired Skin Integrity Start: 06/21/17 23: 25 Freq: Status: Active Protocol: Created 06/21/17 23:25 [facility] (Rec: 06/21/17 23:25 [facility] [id number]) Knowledge Deficit (Swing Bed) Start: 06/21/17 15: 56 Freq: Status: Active Protocol: Created 06/21/17 15:56 [facility] (Rec: 06/21/17 15:56 [facility] [id number]) Pain (Swing Bed) Start: 06/21/17 15: 56 Freq: Status: Active Protocol: Created 06/21/17 15:56 [facility] (Rec: 06/21/17 15:56 [facility] [id number]) - Subjective Detail Gastrointestinal: Reports: Diarrhea, Nausea General - Cognitive Patterns Speech: Normal Thought Process: Intact Thought Content: Normal - Communication Select best description of speech pattern: Clear Speech Ability to express ideas and wants: Understood Understanding verbal content: Understands - Mood and Behavior Patterns Appearance: Well Groomed Mood: Normal Attitude: Cooperative Motor Activity: Calm Affect: Appropriate Hallucinations: Denies - Physical Functioning Activity Level: Up with assist x1 Turning: With partial assist ROM Ability: Moves all extremities Assistive Devices: Walker Ambulation Ability: Needs Assist Bed Mobility: Needs Assist Transfer Ability: Needs Assist Bathing Ability: Needs Assist Personal Hygiene: Needs Assist Dressing Ability: Needs Assist Eating (Feeding) Ability: Needs Assist Toileting Ability: Needs Assist Administer Own Medication: Needs Assist Care Ability Comment: needs help with cutting food prior to eating. - Continence Bowel Pattern: Normal for Patient Bladder Pattern: Normal Meds/Allergies - Allergies Allergies Allergy/AdvReac Type Severity Reaction Status Date / Time codeine AdvReac NAUSEA Verified 06/21/17 15:25 - Active Medications Current Medications Hydrocodone Bitart/Acetaminophen ([place] 5mg/325mg) 1 each PO Q8H PRN PRN Reason: Pain - General Last Admin: 07/03/17 08:05 Dose: 1 each Albuterol Sulfate (Ventolin Hfa) 2 puff INH Q6H PRN PRN Reason: SHORTNESS OF BREATH Docusate Sodium (Colace) 100 mg PO BID [facility] Last Admin: 07/03/17 09:37 Dose: 100 mg Hydrocortisone (Hydrocortisone) 1 gm TOP BID PRN PRN Reason: Pain - General Last Admin: 06/29/17 14:00 Dose: 1 gm Magnesium Hydroxide (Milk Of Magnesium) 30 ml PO DAILY PRN PRN Reason: INDIGESTION Last Admin: 06/25/17 09:59 Dose: 30 ml Mirtazapine (Remeron) 15 mg PO QHS PRN PRN Reason: SLEEP Last Admin: 07/02/17 22:26 Dose: 15 mg Ondansetron HCl (Zofran Odt) 4 mg SL TID PRN PRN Reason: NAUSEA Last Admin: 07/02/17 14:29 Dose: 4 mg Patient Own Med: (Midodrine 5 Mg) 2 each PO TID [facility] Last Admin: 07/03/17 09:37 Dose: 2 each Objective - Vital Signs Vital Signs: Vital Signs - Last 24 Hrs Temp Pulse Pulse Resp BP BP Pulse Ox 07/03/17 10:19 98 F 115/64 07/03/17 10:00 89 17 97 07/02/17 20:00 98.0 F 93 H 18 115/64 97 - General General Appearance: Alert, Oriented x3, Cooperative, No acute distress - Head Head exam: Atraumatic, Normocephalic - Eye Eye exam: Normal appearance, PERRL - ENT ENT exam: Normal exam, Normal orophraynx Ear exam: Normal external inspection Nasal Exam: Normal inspection Mouth exam: Normal external inspection - Neck Neck exam: Normal inspection - Respiratory Respiratory exam: Prolonged expiratory, Wheezes. negative: Respiratory distress - Cardiovascular Cardiovascular Exam: Regular rate, Other (pacemaker present) - GI/Abdominal GI/Abdominal exam: Soft, Normal bowel sounds, Distended (related to ascites). negative: Hyperactive bowel sounds, Tenderness - Rectal Rectal exam: Deferred - exam: Deferred - Extremities Extremities exam: negative: Calf tenderness - Neurological Neurological exam: Alert, Oriented X3 - Skin Skin exam: Other (healing bruising- left eyebrow). negative: Diaphoretic H&P Results - Labs Result Diagrams: 07/02/17 06:20 07/02/17 20:15 Labs Last 24 Hours: Laboratory Results - last 24 hr 07/02/17 20:15 Sodium 131 L Potassium 4.3 Chloride 94 L Carbon Dioxide 21.0 L Anion Gap 16.0 BUN 73 H Creatinine 2.9 H Estimated GFR 17 Random Glucose 136 H Calcium 9.2 Discharge Potential - Discharge Needs Community Services Used Prior to Admission: None Patient Discharge Plan Description: Return Home Community Services Needed at Discharge: Home Health Aide, Home Health Nurse, Occupational Therapy, Physical Therapy Plan - Swing Bed Certification Initial Certification Due: 06/21/17 14 Day Re-Cert Due: 07/05/17 44 Day Re-Cert Due: 08/04/17 74 Day Re-Cert Due: 09/03/17 - Detailed Diagnosis and Plan (1) Weakness generalized Current Visit: No Status: Acute Base Code: R53.1 - WEAKNESS Priority: High Comment: 07/03/17: Generalized weakness worsening over the past year, especially last few months. Continut PT/OT to help build physical strength and functioning. Working with social work to place order for pt. to have hospital bed at home- hospital bed would benefit pt. because she uses arm rails and incline to sit up (due to her generalized weakness and healing right humerus fracture). Planning to discharge home this Monday, 07/07, with residential home health care in place. (2) Hyperkalemia Current Visit: Yes Status: Acute Base Code: E87.5 - HYPERKALEMIA Comment: 07/03/17: potassium increased from 4.3 on 06/28 to 5.6 on 07/02. Pt. denied heart palpitations, chest pain, worsening weakness, confusion, and muscle twitching. Kayexelate 30g PO once ordered and administered, potassium decreased to 4.3 at 1999 on 07/02. Pt. did complain of some nausea/GI discomfort on 07/02 evening, likely secondary to kayexelate. Will continue to monitor BMP after paracentesis. (3) Humerus fracture Current Visit: No Status: Acute Qualifiers: Encounter type: initial encounter Humerus Location: proximal Fracture type: closed Fracture alignment: displaced Laterality: right Base Code: S42.309A - UNSP FRACTURE OF SHAFT OF HUMERUS, UNSP ARM, INIT Comment: 07/03/17: Pt. had f/u with Dr. Ansari on 06/28- right humerus healing well. Continue sling and PT. Planning to d/c home on 07/07- will have residential home health care arranged. (4) Cirrhosis Current Visit: Yes Status: Acute Base Code: K74.60 - UNSPECIFIED CIRRHOSIS OF LIVER Comment: 07/03/17- cirrhosis secondary to alpha 1 antitrypsin deficiency. Patient following with [facility]. Continue weekly paracentesis w/albumin replacement. Plan to continue monitoring BMP after paracentesis for hyperkalemia. (5) Full code status Current Visit: Yes Status: Acute Base Code: Z78.9 - OTHER SPECIFIED HEALTH STATUS Comment: 07/03/17: Pt. remains full code status
[2017-07-03] MEDS: ONDANSETRON 4 MG ODT TABLET SL PRN (13:00)
--- NOTE | 2017-07-03 13:24 | Physical Therapy Tx Note ---
Physical Therapy Tx Note - Treatment Note Total Time Spent With Patient: 15 Physical Therapy Tx Note: Detail (The patient was sitting up in bed upon arrival. She had complaints of nausea, and reported that she has not been feeling well since yesterday. She had bouts of vomiting yesterday, but has not today. The patient wanted to participate in therapy. She was able to transfer from supine to sit with min. assist x1, and was able to sit at the edge of the bed independently. The patient then completed 10-12 reps of the following exercises: LAQ, Hip Abduction/Adduction in sitting, heel and toe raises, wrist flexion/extension, wrist circles, and hand gripping excerises. She tolerated the exercises well, and did not have any increased nausea after exercise. She was able transfer from sit to supine independently, and was able to scoot herself to the middle of the bed independently. The patient was left supine with head of bed elevated and with her call light within reach.) Physical Therapy Problem List: Detail (1. Requires assist for bed mobility. 2. Generalized weakness. 3. Difficulty walking. 4. History of falls.) Physical Therapy Goals: 1. Complete formal balance assessment to establish baseline - met, 32/56 on 06/29/17. 2. Pt will be independent w/bed mobility and transfers. 3. Pt will exhibit 4+/5 strength in major muscle groups of B LE's for greater stability w/transfers and gait. 4. Pt will safely and independently ambulate w/least restrictive assistive device over household distances. Prognosis: Moderate Physical Therapy Plan: Pt will be seen 1-2 times a day M-F for lower extremity strengthening exercises, gait/balance training, bed mobility training, and transfer training to facilitate return to home environment.
[2017-07-03] MEDS ORDERED: GUAIFENESIN/D-METH. 10 ML UDC PO PRN (21:42)
[2017-07-03] MEDS ORDERED: APIXABAN 2.5MG TABLET PO SCH (22:00)
[2017-07-03] MEDS: MIRTAZAPINE 15 MG TABLET PO PRN (22:26)
[2017-07-04] MEDS ORDERED: LEVOTHYROXINE SODIUM 25 MCG TABLET PO SCH (07:00)
[2017-07-04] MEDS: HYDROCODONE/APAP 5/325MG TABLET PO PRN (08:09)
--- NOTE | 2017-07-04 08:40 | Occupational Therapy Tx Note ---
Occupational Therapy Tx Note - Treatment Note Tolerated: Fair Total Time Spent With Patient: 45 (ADL) Occupational Therapy Treatment Note: Detail (S: Pt awake, reports feeling better today. O: Supine to sit with min assist for safety. Sit to stand and amb to toilet with yuri walker and CG assist. Completed toileting with verbal cues due to patients confusion (forgot to wipe self and pull up pants). Pt amb to sink with verbal cues for safety, pt attempted to use toilet paper as soap and scrubbed toothpaste with toilet paper as if it were soap. Pt commented that she seems confused. Pt attempted to put toothpaste on toothpaste cap to brush teeth with and required verbal cues to correctly prepare toothbrush. Pt washed face and combed hair Indly. Amb to chair with yuri walker and CG assist. Doffed PJ bottoms and briefs Indly, donned briefs and PJ bottoms with mod verbal cueing and min assist to position correctly and to tobacco sample puller right hip. Doffed shirt with verbal cues for modified technique, donned sweatshirt with mod verbal cues for modified technique. Pt able to open containers for breakfast Indly. A: Confusion continues with am ADLs, pt continues to require assist with self care activities.) Occupational Therapy Problem List: Detail (1. Decreased Ind with total body dressing. 2. Decreased Ind with showering. 3. Decreased endurance/activity tolerance needed for safe and Ind ADLs.) Occupational Therapy Goals: 1. Pt will be safe and Ind with total body dressing including sling. 2. Pt will be safe and Ind with showering. 3. Pt will participate in activities to improve overall endurance and tolerance to activity to allow safe and Ind ADLs. Prognosis: Moderate Occupational Therapy Plan: OT 2-4 days per week to address self cares, functional mobility, endurance and activity tolerance to allow return home with spouse.
[2017-07-04] MEDS ORDERED: DILTIAZEM 240 MG CAP CR PO SCH (10:00)
[2017-07-04] MEDS ORDERED: SIMVASTATIN 5 MG TABLET PO SCH (10:00)
[2017-07-04] MEDS ORDERED: PAROXETINE HCL 10 MG TABLET PO SCH (10:00)
[2017-07-04] MEDS ORDERED: METOPROLOL TART 25 MG TABLET PO SCH (10:00)
[2017-07-04] MEDS: DOCUSATE SODIUM 100 MG CAPSULE PO SCH ×2 (10:17→22:58)
[2017-07-04] MEDS: BREO (FLUTICASONE/VILANTEROL) 200MCG/25MCG INHALER INH SCH (10:23)
[2017-07-04] MEDS: MIDODRINE 5 MG PO SCH ×3 (10:30→22:58)
--- NOTE | 2017-07-04 15:42 | Physical Therapy Tx Note ---
Physical Therapy Tx Note - Treatment Note Tolerated: Good Total Time Spent With Patient: 30 Physical Therapy Tx Note: Detail (The patient was sitting in her chair upon arrival. The patient was independent in sit to stand. The patient was then able to ambulate for a total of 40 feet before requiring a rest break. She was then taken to the therapy gym for the remainder of treatment. The patient then completed ascending/descending 3 steps in the therapy gym with supervision throughout. She then completed 20-25 reps of the following LE exercises: LAQ, Seated Hip Flexion, Heel/Toe Raises, Hip Add/Abduction. She then completed 8-10 reps of the following UE exercises: Hand squeezes, wrist flexion/extension, and elbow flexion/extension. She requested to be returned to her room after exercise due to fatigue. Upon arrival to her room, the patient was independent in scooting to the middle of her bed and up to the head of the bed. The patient stated that today was the best she has felt recently, and was pleased with her success with therapy.) Physical Therapy Problem List: Detail (1. Requires assist for bed mobility. 2. Generalized weakness. 3. Difficulty walking. 4. History of falls.) Physical Therapy Goals: 1. Complete formal balance assessment to establish baseline - met, 32/56 on 06/29/17. 2. Pt will be independent w/bed mobility and transfers. 3. Pt will exhibit 4+/5 strength in major muscle groups of B LE's for greater stability w/transfers and gait. 4. Pt will safely and independently ambulate w/least restrictive assistive device over household distances. Prognosis: Moderate Physical Therapy Plan: Pt will be seen 1-2 times a day M-F for lower extremity strengthening exercises, gait/balance training, bed mobility training, and transfer training to facilitate return to home environment.
[2017-07-04] MEDS: MIRTAZAPINE 15 MG TABLET PO PRN (22:58)
[2017-07-05] MEDS: BREO (FLUTICASONE/VILANTEROL) 200MCG/25MCG INHALER INH SCH (09:16)
[2017-07-05] MEDS: DOCUSATE SODIUM 100 MG CAPSULE PO SCH ×2 (09:42→21:21)
[2017-07-05] MEDS: MIDODRINE 5 MG PO SCH ×3 (09:42→21:21)
[2017-07-05] MEDS: ONDANSETRON 4 MG ODT TABLET SL PRN (10:57)
--- NOTE | 2017-07-05 13:02 | Occupational Therapy Tx Note ---
Occupational Therapy Tx Note - Treatment Note Tolerated: Fair Total Time Spent With Patient: 20 (ADL) Occupational Therapy Treatment Note: Detail (S: Pt resting in bed, feeling good today. O: Supine to sit Indly using hospital bed rail. Sit to stand and amb to toilet with yuri walker and SBA. Toileted Indly with assist to pull pants over right hip. Doffed PJ bottoms Indly in sitting. Amb to sink and completed oral hygiene in sitting due to increased fatigue and shortness of breath. Pt amb to chair with SBA. Donned pants with min assist to start over left foot and pull pantleg completely over foot. Sit to stand and pulled pants over hips with min assist. Pt became nauseted and vomited several times. Due to patient not feeling well therapy session was ended. Pt was assisted back to bed with help from nursing. A: Pt continues to require assist with dressing activities.) Occupational Therapy Problem List: Detail (1. Decreased Ind with total body dressing. 2. Decreased Ind with showering. 3. Decreased endurance/activity tolerance needed for safe and Ind ADLs.) Occupational Therapy Goals: 1. Pt will be safe and Ind with total body dressing including sling. 2. Pt will be safe and Ind with showering. 3. Pt will participate in activities to improve overall endurance and tolerance to activity to allow safe and Ind ADLs. Prognosis: Moderate Occupational Therapy Plan: OT 2-4 days per week to address self cares, functional mobility, endurance and activity tolerance to allow return home with spouse.
--- NOTE | 2017-07-05 14:46 | Physical Therapy Tx Note ---
Physical Therapy Tx Note - Treatment Note Tolerated: Fair Total Time Spent With Patient: 25 Physical Therapy Tx Note: Detail (The patient was laying in bed upon arrival. She was able to transfer from her bed to her chair with supervision for safety. The patient's strength was retested today as well. Grades were as follows: Bilateral Hip flexion 5/5, B Hip abduction/adduction 4+/5, B knee flexion 4/5, knee extension 4+/5, B Ankle Dorsiflexion 5/5, B Plantarflexion 4/5. [place] Balance Assessment was completed again, and the patient scored 17/28, which places her in the high risk category for a fall. This score remained unchanged from the Initial Evaluation. The patient was able to ambulate from her bedside to the middle of the hallway to the her restroom, as the patient requested she needed to urinate (about 22 feet total) with CGA x1. The patient was able to transfer to the toilet with supervision only. The patient required standby assist during toileting activities and handwashing. She was able to ambulate to her bed from the restroom with CGA x1. Upon returning to bed, the patient was mostly independent with scooting to the middle of the bed, but required max. assist x2 to scoot the rest of the way up in bed. The patient stated that she was very fatigued with all therapy activities. The patient was left in bed with her call light in reach after therapy was stopped.) Physical Therapy Problem List: Detail (1. Requires assist for bed mobility. 2. Generalized weakness. 3. Difficulty walking. 4. History of falls.) Physical Therapy Goals: 1. Complete formal balance assessment to establish baseline - met, 32/56 on 06/29/17. 2. Pt will be independent w/bed mobility and transfers. 3. Pt will exhibit 4+/5 strength in major muscle groups of B LE's for greater stability w/transfers and gait - PARTIALLY MET. 4. Pt will safely and independently ambulate w/least restrictive assistive device over household distances. Prognosis: Moderate Physical Therapy Plan: Pt will be seen 1-2 times a day M-F for lower extremity strengthening exercises, gait/balance training, bed mobility training, and transfer training to facilitate return to home environment.
[2017-07-05] MEDS: MIRTAZAPINE 15 MG TABLET PO PRN (21:24)
--- NOTE | 2017-07-06 07:28 | Discharge Summary ---
Providers Discharge Summary Date: 07/06/17 Date of admission: 06/21/17 15:18 Expected Date of Discharge: 07/06/17 Attending physician: CHRISTINA ORTIZ Primary care physician: THOMAS ALVAREZ D.O. Physical Exam - Vital Signs Vital Signs: Vital Signs - Last 24 Hrs Temp Pulse Pulse Resp BP Pulse Ox 07/05/17 20:00 98 F 90 18 95/50 96 07/05/17 09:17 89 16 98 07/05/17 09:16 89 16 98 07/05/17 08:00 97.1 F L 84 16 98/61 95 - General General Appearance: Alert, Oriented x3, Cooperative, No acute distress - Head Head exam: Atraumatic, Normocephalic - Eye Eye exam: Normal appearance, PERRL - ENT ENT exam: Normal exam, Normal orophraynx Ear exam: Normal external inspection Nasal Exam: Normal inspection Mouth exam: Normal external inspection - Neck Neck exam: Normal inspection - Respiratory Respiratory exam: Prolonged expiratory, Wheezes. negative: Respiratory distress - Cardiovascular Cardiovascular Exam: Regular rate, Other (pacemaker present) - GI/Abdominal GI/Abdominal exam: Soft, Normal bowel sounds, Distended (related to ascites). negative: Hyperactive bowel sounds, Tenderness - Rectal Rectal exam: Deferred - exam: Deferred - Extremities Extremities exam: negative: Calf tenderness - Neurological Neurological exam: Alert, Oriented X3 - Skin Skin exam: Other (healing bruising- left eyebrow). negative: Diaphoretic Hospitalization - Hospitalization Admission Diagnosis: right humerus fracture. Ascitis d/t cirrhosis. Emphysema - Problem List (1) Weakness generalized Current Visit: No Status: Acute Base Code: R53.1 - WEAKNESS Comment: : Generalized weakness worsening over the past year, especially last few months. -Continue PT/OT to help build physical strength and functioning. - Planning to discharge home tomorrow morning, Monday, 07/07, with residential home health care in place. -hospital bed delivered today -has paracentesis tomorrow and follow up with Dr. Alvarez on Monday (2) Humerus fracture Current Visit: No Status: Acute Discharge Diagnosis: Encounter type: initial encounter Humerus Location: proximal Fracture type: closed Fracture alignment: displaced Laterality: right Base Code: S42.309A - UNSP FRACTURE OF SHAFT OF HUMERUS, UNSP ARM, INIT Comment: 2/08/18: Pt. had f/u with Dr. Thomas on 06/28- right humerus healing well. -Continue sling and home PT. 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 Patient following with [facility]. -Continue weekly paracentesis w/albumin replacement. Next one scheduled for tomorrow 07/07. patient will discharge from [facility] and go directly to her appointment (4) Full code status Current Visit: Yes Status: Acute Base Code: Z78.9 - OTHER SPECIFIED HEALTH STATUS Comment: 07/06/17: Pt. remains full code status - Hospitalization Course Disposition: Home Health Service Hospital Course: Patient is a 77 yo female admitted to [facility] for generalized weakness. 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 Patient transferred to [facility] from our ER after mechanical fall and right humeral fracture. Incidentally, patient was found to have hyponatremia and acute on chronic renal failure. Patient's sodium is chronically low due to cirrhosis. She has weekly paracentesis (most recently 06/16). Her right humeral fracture is non surgical. Patient reports mid esophageal liquid/solid dysphagia. pertinent negatives: cp, sob, sally, fever, chills, n/v, abd pain, diarrhea, dizziness, lightheadedness. positive: right upper ext pain, bruising, fatigue, weakness. Patient lives in a one story home with her . She does have two stairs into her house w/o a railing. There's a tub/shower combo in her bathroom. Prior to her arrival, patient ambulated without an assisted device. 07/06/17- Patient states she is feeling ok. She says she feels like she is at her baseline. She feels like her pain is well controlled. She is ready to go home. GI: [facility], EGD scheduled in June. Nephrology: Dr. Alvarado Ortho: Dr. Thomas- matti mcgarryp in 2 weeks from 06/21 PCP: Dr. Alvarez Abnormal Labs: Abnormal Lab Results 06/22/17 06/22/17 06/23/17 Range/Units 06:27 06:27 06:12 RBC 2.70 L (3.80-5.40) M/uL Hgb 8.5 L (11.6-16.0) gm/dl Hct 25.7 L (35.0-47.0) % MCV (81-97) fl RDW (11.5-14.5) % MPV (7.4-10.4) fl Neutrophils % (47-80) % Monocytes % 10.5 H (0-9) % Lymphocytes (16-45) % Sodium 130 L 132 L (136-145) mmol/L Potassium 4.9 H (3.4-4.5) mmol/L Chloride 95 L 94 L (98-107) mmol/L Carbon Dioxide 19.0 L 20.0 L (22-29) mmol/L Anion Gap 18.0 H (7-16) BUN 82 H 84 H (8-23) mg/dL Creatinine 3.2 H 3.2 H (0.5-0.9) mg/dL Random Glucose (74-109) mg/dL Total Bilirubin 1.30 H 1.40 H (0.2-1.0) mg/dL AST 41 H 45 H (10.0-35.0) U/L Alkaline Phosphatase 185 H 205 H (35-104) U/L Total Protein 6.0 L 5.9 L (6.6-8.7) g/dL Albumin 3.2 L 3.1 L (4.0-5.0) g/dL 06/24/17 06/25/17 06/26/17 Range/Units 07:10 07:39 06:46 RBC (3.80-5.40) M/uL Hgb (11.6-16.0) gm/dl Hct (35.0-47.0) % MCV (81-97) fl RDW (11.5-14.5) % MPV (7.4-10.4) fl Neutrophils % (47-80) % Monocytes % (0-9) % Lymphocytes (16-45) % Sodium 133 L 133 L 132 L (136-145) mmol/L Potassium 4.8 H 5.8 H (3.4-4.5) mmol/L Chloride 97 L (98-107) mmol/L Carbon Dioxide 20.0 L 19.0 L 21.0 L (22-29) mmol/L Anion Gap 17.0 H (7-16) BUN 79 H 73 H 70 H (8-23) mg/dL Creatinine 2.7 H 2.4 H 2.3 H (0.5-0.9) mg/dL Random Glucose (74-109) mg/dL Total Bilirubin 1.50 H 1.40 H 1.60 H (0.2-1.0) mg/dL AST 40 H 38 H 44 H (10.0-35.0) U/L Alkaline Phosphatase 190 H 186 H 204 H (35-104) U/L Total Protein 5.8 L 5.7 L 6.1 L (6.6-8.7) g/dL Albumin 3.4 L 3.3 L 3.5 L (4.0-5.0) g/dL 06/26/17 06/27/17 06/28/17 Range/Units 17:41 06:55 08:43 RBC 2.91 L (3.80-5.40) M/uL Hgb 9.2 L (11.6-16.0) gm/dl Hct 28.6 L (35.0-47.0) % MCV 98.3 H (81-97) fl RDW 15.0 H (11.5-14.5) % MPV (7.4-10.4) fl Neutrophils % (47-80) % Monocytes % (0-9) % Lymphocytes (16-45) % Sodium 135 L 134 L (136-145) mmol/L Potassium 5.1 H (3.4-4.5) mmol/L Chloride 95 L (98-107) mmol/L Carbon Dioxide 19.0 L 21.0 L (22-29) mmol/L Anion Gap 21.0 H (7-16) BUN 69 H 65 H (8-23) mg/dL Creatinine 2.5 H 2.4 H (0.5-0.9) mg/dL Random Glucose 170 H (74-109) mg/dL Total Bilirubin 1.70 H (0.2-1.0) mg/dL AST 37 H (10.0-35.0) U/L Alkaline Phosphatase 184 H (35-104) U/L Total Protein 5.6 L (6.6-8.7) g/dL Albumin 3.1 L (4.0-5.0) g/dL 06/28/17 07/02/17 07/02/17 Range/Units 08:43 06:20 06:20 RBC 2.73 L (3.80-5.40) M/uL Hgb 8.6 L (11.6-16.0) gm/dl Hct 26.9 L (35.0-47.0) % MCV 98.5 H (81-97) fl RDW 14.8 H (11.5-14.5) % MPV 10.5 H (7.4-10.4) fl Neutrophils % 88.0 H (47-80) % Monocytes % (0-9) % Lymphocytes 7.0 L (16-45) % Sodium 132 L 131 L (136-145) mmol/L Potassium 5.6 H (3.4-4.5) mmol/L Chloride 95 L 97 L (98-107) mmol/L Carbon Dioxide 21.0 L 21.0 L (22-29) mmol/L Anion Gap (7-16) BUN 62 H 72 H (8-23) mg/dL Creatinine 2.5 H 3.0 H (0.5-0.9) mg/dL Random Glucose (74-109) mg/dL Total Bilirubin 2.40 H 2.10 H (0.2-1.0) mg/dL AST 41 H 44 H (10.0-35.0) U/L Alkaline Phosphatase 181 H 232 H (35-104) U/L Total Protein 6.0 L 6.1 L (6.6-8.7) g/dL Albumin 3.1 L 3.2 L (4.0-5.0) g/dL 07/02/17 Range/Units 20:15 RBC (3.80-5.40) M/uL Hgb (11.6-16.0) gm/dl Hct (35.0-47.0) % MCV (81-97) fl RDW (11.5-14.5) % MPV (7.4-10.4) fl Neutrophils % (47-80) % Monocytes % (0-9) % Lymphocytes (16-45) % Sodium 131 L (136-145) mmol/L Potassium (3.4-4.5) mmol/L Chloride 94 L (98-107) mmol/L Carbon Dioxide 21.0 L (22-29) mmol/L Anion Gap (7-16) BUN 73 H (8-23) mg/dL Creatinine 2.9 H (0.5-0.9) mg/dL Random Glucose 136 H (74-109) mg/dL Total Bilirubin (0.2-1.0) mg/dL AST (10.0-35.0) U/L Alkaline Phosphatase (35-104) U/L Total Protein (6.6-8.7) g/dL Albumin (4.0-5.0) g/dL Condition at Discharge: (2) Stable Discharge Medications - Discharge Medications Home Medications: Ambulatory Orders Budesonide/Formoterol Fumarate [Symbicort 160-4.5 Mcg Inhaler] 10.2 gm IH BID [Last Taken 06/23/16] Midodrine HCl 5 mg PO TID 06/18/17 [Last Taken Unknown] Discharge Plan - Discharge Instructions Activity at Discharge: As Per Physical Therapy Additional Instructions: Appointments have been scheduled for you as follows: Dr. Alvarez- Monday 07/10, 1:30pm. [address] [place] [address], [phone] Dr. Thomas [place] [facility]-Wednesday 07/12, 11:15am. [address], [place] [address], NAVYA Bejarano at [facility]- 07/27, 11:20 am. [address], [place] [address], [facility] will be starting services at home the day after you discharge. [facility] will be providing physical therapy, occupational therapy , nursing, and an aide to help in the shower. [facility] will contact you to schedule a time for first visit. They can be reached at . Please call with any questions or concerns. Quality Measures - Quality Measures Quality Measures: Advance Directives, Documentation of Current Medications in Medical Record, Elder Maltreatment Screen and Follow-Up Plan, Screening for High Blood Pressure and F/U Documented - Current Medications Quality Measure: Measure #130: Documentation of Current Medications Documentation of Current Medications: <Current Medications Documented/Reviewed> [F9583] - Blood Pressure Screening Quality Measure: Screening for High Blood Pressure and Follow-Up Documented Does Patient Have Any of the Following: No Blood Pressure Classification: Normal BP Reading Systolic Measurement: 93 Diastolic Measurement: 55 Screening for High Blood Pressure: < Normal BP, F/U Not Required > [M1183] - Advance Directives Quality Measure: Measure #47: Care Plan Advance Directives Established: Yes Advance Directives Information Provided To Patient: No Advance Directives on File: No Living Will: Yes Power of Head Of Marketing Adometry: Yes Power of Head Of Marketing Adometry Name: Zhanna hill Advance Care Planning: <Care Plan/Decision Maker Documented; Discussed & Documented> [4903F] - Elder Abuse Suspicion Index Screening: Elder Abuse Suspicion Index Screening Rely on people for bathing, dressing, shopping, banking, etc: Yes Prevented from getting food, clothes, medication, etc: No Made to feel shamed or threatened by someone: No Forced to sign papers or use money against will: No Feel afraid, touched in ways not wanted or hurt physically: No Poor eye contact, withdrawn, malnourished, cuts or bruises: No Screening Result: Negative result EASI Reference Information: Perla NICHOLS, Sukumar C, Jon D, Johnny Lopez.Development and validation of a tool to assist physicians identification of elder abuse: The Elder Abuse Suspicion Index (EASI ). Journal of Elder Abuse and Neglect, 2008; 20 (3): 276-300. - Elder Maltreatment Screen Quality Measures: Elder Maltreatment Screen and Follow-Up Plan Elder Maltreatment Screen: <Negative, No Follow-Up Plan Required> [Y5634]
[2017-07-06] MEDS: DOCUSATE SODIUM 100 MG CAPSULE PO SCH ×2 (09:23→22:55)
[2017-07-06] MEDS: MIDODRINE 5 MG PO SCH ×3 (09:23→22:55)
[2017-07-06] MEDS: BREO (FLUTICASONE/VILANTEROL) 200MCG/25MCG INHALER INH SCH (09:53)
--- NOTE | 2017-07-06 11:40 | Physical Therapy Tx Note ---
Physical Therapy Tx Note - Treatment Note Tolerated: Good Total Time Spent With Patient: 40 Physical Therapy Tx Note: Detail (Patient was reclined in bed upon INTERACTIVE GRAPHIC DESIGNER arrival. Patient states right shoulder pain "not bad" today. Patient transferred sit to supine min assist x1. Patient transferred sit to and from stand x2 SBA x1. Patient required assistance to doff and don socks. Patient ambulated 43 feet with hemiwalker SBA x1. Patient performed the following exercises seated in chair x15-20 reps each: marching, LAQ, heel raises, toe raises, hip adduction isometrics, shoulder circles/wrist circles, and hand grasp/extension. Patient transferred sit to and from stand SBA x1. Patient ambulated 13 feet with hemiwalker SBA x1. Patient transferred sit to and from stand SBA x1. Patient brushed teeth and washed hands independently while sitting at sink. Patient transferred sit to and from stand SBA x1. Patient ambulated 13 feet with hemiwalker SBA x1. Patient transferred sit to supine independently. Patient scooted in bed independently. Patient tolerated treatment well. Patient reports tired after exercises and after treatment. Patient was left reclined in bed with call light within reach.) Physical Therapy Problem List: Detail (1. Requires assist for bed mobility. 2. Generalized weakness. 3. Difficulty walking. 4. History of falls.) Physical Therapy Goals: 1. Complete formal balance assessment to establish baseline - met, 32/56 on 06/29/17. 2. Pt will be independent w/bed mobility and transfers. 3. Pt will exhibit 4+/5 strength in major muscle groups of B LE's for greater stability w/transfers and gait - PARTIALLY MET. 4. Pt will safely and independently ambulate w/least restrictive assistive device over household distances. Prognosis: Good Physical Therapy Plan: Pt will be seen 1-2 times a day M-F for lower extremity strengthening exercises, gait/balance training, bed mobility training, and transfer training to facilitate return to home environment.
--- NOTE | 2017-07-06 14:47 | Physical Therapy Tx Note ---
Physical Therapy Tx Note - Treatment Note Tolerated: Good Total Time Spent With Patient: 15 Physical Therapy Tx Note: Detail (Pt reclined in bed upon arrival; awake and cooperative for limited therapy. States she walked earlier w/LIME SLUDGE KILN OPERATOR and became really fatigued. Not having pain at rest, just feels very tired. Agreeable for gentle PROM R UE in mostly upright position: shoulder flexion/extension, abduction/adduction, IR/ER; elbow flexion/extension, hand construction driver/open x 10 of each. Declined any further exercise/activity due to fatigue. Left in bed w/ call light in reach and family present.) Physical Therapy Problem List: Detail (1. Requires assist for bed mobility. 2. Generalized weakness. 3. Difficulty walking. 4. History of falls.) Physical Therapy Goals: 1. Complete formal balance assessment to establish baseline - met, 32/56 on 06/29/17. 2. Pt will be independent w/bed mobility and transfers. 3. Pt will exhibit 4+/5 strength in major muscle groups of B LE's for greater stability w/transfers and gait - PARTIALLY MET. 4. Pt will safely and independently ambulate w/least restrictive assistive device over household distances. Prognosis: Good Physical Therapy Plan: Pt will be seen 1-2 times a day M-F for lower extremity strengthening exercises, gait/balance training, bed mobility training, and transfer training to facilitate return to home environment.
[2017-07-06] MEDS: MIRTAZAPINE 15 MG TABLET PO PRN (23:17)
[2017-07-07] MEDS: MIDODRINE 5 MG PO SCH (09:28)
[2017-07-07] MEDS: DOCUSATE SODIUM 100 MG CAPSULE PO SCH (09:28)
[2017-07-07] MEDS: BREO (FLUTICASONE/VILANTEROL) 200MCG/25MCG INHALER INH SCH (09:35)
--- NOTE | 2017-07-07 15:05 | Rehab Discharge Summary ---
Patient Information - Patient Information Diagnosis: right humerus fracture, ascitis d/t cirrhosis, emphysema Ordered Treatment: PT Evaluate and Treat Surgery: No History: Detail (Pt had a fall at home at night while walking to the bathroom from bed. She doesn't know what happened but thinks she may have slipped. She states that her , son and daughter in law all helped her get back into bed, where she proceeded to experience increasing pain in the right upper extremity. She subsequently came to the ED, diagnosed with R humerus fracture, and was transferred to [facility], where she receives paracentesis weekly. She is admitted to sub-acute rehab due to generalized weakness.) Past Med/Gaetano Hx Detail: Detail (Pt, spouse and family members report she has been ill for about a year and has been getting weaker.) Past Medical/Surgical Hx: PAST MEDICAL/SURGICAL HISTORY Past Surgical History hysterectomy appendectomy tonsillectomy PMH - Respiratory Hx Respiratory Disorders Yes Hx Chronic Obstructive Yes Pulmonary Disease (COPD) Hx Pneumonia Yes Comment: Home O2- 2L mostly throughout the night PMH - Cardiovascular Hx Cardiovascular Disorders Yes Hx Irregular Heartbeat Yes: afib Hx Pacemaker/Defibrillator Yes: bradycardia PMH - Neuro Hx Neurological Disorders No Hx Seizures No PMH - GI Hx Gastrointestinal Disorders Yes Hx Liver Disease Yes: cirrhosis- unrelated to etoh Hx Nausea/Vomiting Yes Comment: hx esophageal varicies, numerous scopes with banding PMH - Hx Genitourinary Disorders Yes Hx Renal Disease Yes PMH - Endocrine Hx Endocrine Disorders No Hx Diabetes No Hx Thyroid Disease No PMH - Musculoskeletal Hx Musculoskeletal Disorders No Comment: fx ribs 2 yrs ago PMH - Psych Hx Psychiatric Problems No PMH - Hematology/Oncology Hx Hematology/Oncology Yes Disorders Hx Cancer Yes: cervical Hx Chemotherapy No Hx Radiation Therapy No Premorbid Status: Detail (Pt lives with spouse in a 1 story house, she stays on the 1st floor. She has 2 steps, no handrails at entrance although there is a surface to grab onto by the steps. She has a tub/shower combination, 1 grab bar and no seat. She usually stands to shower. Spouse and sister complete home mgmt, meal prep and laundry. She has been Ind with showering and dressing although her spouse is nearby in case she needs help. Prior to fall she was ambulating without an assistive device.) Social History: Detail (Pt states she does very little during the day but watch TV and read. She tries to help with cooking but fatigues easily. Spouse and pt 's son do most of household ADLs.) Precautions: [place], Fall, Other (Right UE in sling at all times, non weight bearing right UE) Subjective Information - Subjective Information Per Patient (Still has complaints of fatigue and pain in the right arm. She feels that she has slightly improved, but still feels she has weakness.) Objective Data - Mental Status Patient Orientation: Oriented x3 - ROM Within normal limits - Strength/Tone Not within normal limits (B Hip Flexion and ankle dorsiflexion 5/5, B Hip Abduction/Adduction and Knee Extension 4+/5, B Plantarflexion and knee flexion 4 /5) - Coordination Appears within normal limits for therapeutic activities - Bed Mobility Needs Assist (Needed mod x2 for scooting in bed toward the head, but was independent in scooting to the middle of the bed.) - Transfers Needs Assist (Needed min x1 to transfer from supine to sit, occasionally could transfer supine to sit with supervision/CGA x1. Sit to stand transfer required supervision only) - Balance Balance Sitting: Good Balance Standing: Fair (Required use of yuri-walker to maintain upright posture during standing.) - Gait Detail (Uses yuri-walker. The patient required CGA x1, and was able to ambulate a total of 40 feet, but required a rest to complete the 40 feet distance.) Therapy Assessment - Therapy Assessment Detail (The patient demonstrated increased strength during swingbed stay. The patient's ambulation distance increased, but still showed signs unsteadiness throughout. Her transfers were more hindered by the fractured humerus and ascites, but showed signs of improvement. The patient's score on functional balance test remained the same as she score 17/28 on the Tinetti Balance Scale, which places her in a high risk category for a fall. Due to the patient's desire to have the head of the bed elevated and occasional need for bed rail to assist supine to sit, the patient decided on getting a hospital bed for home. She was also vended a yuri-walker for ambulation within the home, as a cane was not a safe option for use in the home) Problem List - Problem List Physical Therapy Problem List: Detail (1. Requires assist for bed mobility. 2. Generalized weakness. 3. Difficulty walking. 4. History of falls.) Occupational Therapy Problem List: Detail (1. Decreased Ind with total body dressing. 2. Decreased Ind with showering. 3. Decreased endurance/activity tolerance needed for safe and Ind ADLs.) Goals - Goals Physical Therapy Goals: 1. Complete formal balance assessment to establish baseline - met, 32/56 on 06/29/17. 2. Pt will be independent w/bed mobility and transfers - PARTIALLY MET - Required supervision/CGA - scooting in bed difficult due to inability to use R UE. 3. Pt will exhibit 4+/5 strength in major muscle groups of B LE's for greater stability w/transfers and gait - PARTIALLY MET. 4. Pt will safely and independently ambulate w/least restrictive assistive device over household distances - PARTIALLY MET - required CGA to supervision Occupational Therapy Goals: 1. Pt will be safe and Ind with total body dressing including sling. 2. Pt will be safe and Ind with showering. 3. Pt will participate in activities to improve overall endurance and tolerance to activity to allow safe and Ind ADLs. Prognosis - Prognosis Moderate Plan - Plan Physical Therapy Plan: The patient will be discharged to Home with PT and OT services. Occupational Therapy Plan: OT 2-4 days per week to address self cares, functional mobility, endurance and activity tolerance to allow return home with spouse.
--- NOTE | 2017-07-10 07:35 | Rehab Discharge Summary ---
Patient Information - Patient Information Diagnosis: right humerus fracture, ascitis d/t cirrhosis, emphysema Ordered Treatment: OT Evaluate and Treat Surgery: No History: Detail (Pt had a fall at home at night while walking to the bathroom from bed. She doesn't know what happened but thinks she may have slipped. She states that her , son and daughter in law all helped her get back into bed, where she proceeded to experience increasing pain in the right upper extremity. She subsequently came to the ED, diagnosed with R humerus fracture, and was transferred to [facility], where she receives paracentesis weekly. She is admitted to sub-acute rehab due to generalized weakness.) Past Med/Gaetano Hx Detail: Detail (Pt, spouse and family members report she has been ill for about a year and has been getting weaker.) Past Medical/Surgical Hx: PAST MEDICAL/SURGICAL HISTORY Past Surgical History hysterectomy appendectomy tonsillectomy PMH - Respiratory Hx Respiratory Disorders Yes Hx Chronic Obstructive Yes Pulmonary Disease (COPD) Hx Pneumonia Yes Comment: Home O2- 2L mostly throughout the night PMH - Cardiovascular Hx Cardiovascular Disorders Yes Hx Irregular Heartbeat Yes: afib Hx Pacemaker/Defibrillator Yes: bradycardia PMH - Neuro Hx Neurological Disorders No Hx Seizures No PMH - GI Hx Gastrointestinal Disorders Yes Hx Liver Disease Yes: cirrhosis- unrelated to etoh Hx Nausea/Vomiting Yes Comment: hx esophageal varicies, numerous scopes with banding PMH - Hx Genitourinary Disorders Yes Hx Renal Disease Yes PMH - Endocrine Hx Endocrine Disorders No Hx Diabetes No Hx Thyroid Disease No PMH - Musculoskeletal Hx Musculoskeletal Disorders No Comment: fx ribs 2 yrs ago PMH - Psych Hx Psychiatric Problems No PMH - Hematology/Oncology Hx Hematology/Oncology Yes Disorders Hx Cancer Yes: cervical Hx Chemotherapy No Hx Radiation Therapy No Premorbid Status: Detail (Pt lives with spouse in a 1 story house, she stays on the 1st floor. She has 2 steps, no handrails at entrance although there is a surface to grab onto by the steps. She has a tub/shower combination, 1 grab bar and no seat. She usually stands to shower. Spouse and sister complete home mgmt, meal prep and laundry. She has been Ind with showering and dressing although her spouse is nearby in case she needs help. Prior to fall she was ambulating without an assistive device.) Social History: Detail (Pt states she does very little during the day but watch TV and read. She tries to help with cooking but fatigues easily. Spouse and pt 's son do most of household ADLs.) Precautions: [employer], Fall, Other (Right UE in sling at all times, non weight bearing right UE) Subjective Information - Subjective Information Per Patient Objective Data - Pain Pain Present: Yes (right UE pain neville. with activity) - Mental Status Patient Orientation: Oriented x3 - Visual Perception Appears within normal limits for therapeutic activities - ROM Not within normal limits (Left UE AROM WNL. Right UE not formally tested due to fracture. Pt was performing codman exercises with cueing, right elbow motion limited, wrist and hand motion functional.) - Strength/Tone Not within normal limits (left UE 4+/5, right UE not tested.) - Coordination Appears within normal limits for therapeutic activities (Pt able to use right UE as an assist.) - Bed Mobility Needs Assist (Pt is Ind with supine to sit at times using bed rails, if patient is fatigued or shoulder is painful she requires min assist for supine to sit.) - Transfers Needs Assist (CG for sit to stand from EOB, chair, toilet surfaces.) - Balance Balance Sitting: Good Balance Standing: Fair - Sensation Intact - Gait Detail (Pt ambulating in room with yuri walker and CG assist.) - ADL's/IADL's Detail (Pt able to complete showering in sitting with min assist for back and hair as well as CG assist for standing. Pt requires assistance for dressing, at times she needs min to mod assist and at other times she requires mod to max assist. Pt demonstrates confusion as well as apraxia at times with self care activities.) Therapy Assessment - Therapy Assessment Detail (Pt has made some gains in Ind and overall endurance although she requires continued assistance with self cares and functional mobility due to safety concerns and right UE limitations.) Problem List - Problem List Physical Therapy Problem List: Detail (1. Requires assist for bed mobility. 2. Generalized weakness. 3. Difficulty walking. 4. History of falls.) Occupational Therapy Problem List: Detail (1. Decreased Ind with total body dressing. 2. Decreased Ind with showering. 3. Decreased endurance/activity tolerance needed for safe and Ind ADLs.) Goals - Goals Physical Therapy Goals: 1. Complete formal balance assessment to establish baseline - met, 32 on 06/29/17. 2. Pt will be independent w/bed mobility and transfers - PARTIALLY MET - Required supervision/CGA - scooting in bed difficult due to inability to use R UE. 3. Pt will exhibit 4+/5 strength in major muscle groups of B LE's for greater stability w/transfers and gait - PARTIALLY MET. 4. Pt will safely and independently ambulate w/least restrictive assistive device over household distances - PARTIALLY MET - required CGA to supervision Occupational Therapy Goals: Goals partially met: 1. Pt will be safe and Ind with total body dressing including sling. 2. Pt will be safe and Ind with showering. 3. Pt will participate in activities to improve overall endurance and tolerance to activity to allow safe and Ind ADLs. Prognosis - Prognosis Moderate Plan - Plan Physical Therapy Plan: The patient will be discharged to Home with PT and OT services. Occupational Therapy Plan: Pt is discharged home with home OT and PT.
== END 2017-07-07 11:05 | disposition home health service (06) | DRG 948 ==
LOC: MEDSURG 06-21 15:18
PROVIDERS: ADMIT Internal Medicine; ATTEND Internal Medicine
DX: R53.81 Other malaise (principal); R18.8 Other ascites; E87.1 Hypo-osmolality and hyponatremia; I85.00 Esophageal varices without bleeding; Z79.01 Long term (current) use of anticoagulants; I48.2 Chronic atrial fibrillation; E88.01 Alpha-1-antitrypsin deficiency; K74.60 Unspecified cirrhosis of liver; N28.9 Disorder of kidney and ureter, unspecified; S01.112A Laceration without foreign body of left eyelid and periocular area, initial encounter; W18.39XA Other fall on same level, initial encounter; Y92.231 Patient bathroom in hospital as the place of occurrence of the external cause; J43.9 Emphysema, unspecified; Z95.0 Presence of cardiac pacemaker; D63.8 Anemia in other chronic diseases classified elsewhere; R13.10 Dysphagia, unspecified; S42.354D Nondisplaced comminuted fracture of shaft of humerus, right arm, subsequent encounter for fracture with routine healing
CPT/HCPCS: 80048; 80053; 85025; 85027; 94760; 97110; 97116; 97165; 97530; 97535; 99306; 99309; 99316; J7512